=== PATIENT | female | born 1960 | race Caucasian/White ===

== ENCOUNTER 2020-07-27 13:14 | Outpatient (CLI) | payer OTHER, SELFPAY ==
--- NOTE | 2020-07-27 13:20 | MM_ITS ---
WS: [id number] BILATERAL SCREENING MAMMOGRAM WITH SAM DISPLACEMENT VIEWS. CAD PERFORMED. HISTORY: SCREENING COMPARISON: 09/03/2018 and 07/30/2017 Bilateral craniocaudal and mediolateral like views are performed. Sam displacement views in CC and MLO projection also performed. Breasts composition: The breasts are extremely dense, which lowers the sensitivity of mammography. V nat dense fibroglandular pattern. Prepectoral implants are intact. No suspicious calcification or mas s. MM/[id number] IMPRESSION: BI-RADS: 2-Benign FOLLOW-UP: 1 Year Follow-up
== END 2020-07-27 13:15 | disposition home or self-care (01) ==
LOC: RADSHAW 13:19
PROVIDERS: Family Provider Internal Medicine; PCP Family Medicine; Visit Provider Family Medicine
DX: Z12.31 Encounter for screening mammogram for malignant neoplasm of breast (principal)
CPT/HCPCS: 77067

== ENCOUNTER 2021-02-23 09:28 | Emergency (ER) | payer SELFPAY ==
[2021-02-23 09:29] VITALS: BP 117/88; PULSE 75; RESP 17; TEMP 37.1; O2SAT 98; BMI 21.7
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
[2021-02-23 10:08] LABS: Basophils # 0.1 10^3/uL (0.0-0.1); Eosinophils # 0.2 10^3/uL (0.0-0.8); Eosinophils % 2.3 %; Hematocrit 41.1 % (37.0-47.0); Hemoglobin 13.9 g/dL (11.5-15.3); Lymphocytes # 1.7 10^3/uL (0.8-4.8); Lymphocytes % 25.3 %; Mean Corpuscular HGB Conc 33.8 g/dL (30.0-36.0); Mean Corpuscular Hemoglobin 31.7 pg (28.0-34.0); Mean Corpuscular Volume 93.8 fl (81-99); Mean Platelet Volume 10.4 fL (7.4-10.4); Monocytes # 0.5 10^3/uL (0.2-0.9); Monocytes % 7.8 %; Neutrophils # 4.37 10^3/uL (1.8-7.7); Neutrophils % 63.5 %; Nucleated Red Blood Cells % 0 %; Platelet Count 180 10^3/cmm (130-400); Red Blood Count 4.38 10^6/uL (4.1-5.3); Red Cell Distribution Width 11.9 % (12.1-15.1); White Blood Count 6.9 10^3/uL (4.0-10.0)
[2021-02-23 10:15] LABS: Blood Urea Nitrogen 19 mg/dL (6-20); Calcium 9.2 mg/dL (8.5-10.5); Carbon Dioxide 29 mmol/L (22-29); Chloride 103 mmol/L (98-107); Glomerular Filtration Rate 73.4 mL/min (90-130); Glucose 84 mg/dL (65-115); Osmolality Calculated 295 mOsm/kg (285-295); Sodium 142 mmol/L (136-145)
[2021-02-23 10:19] LABS: Add Urine Microscopic? NO; Charge for UA Resulting for Rev
[2021-02-23 10:22] LABS: Bilirubin Urine Neg (Negative); Blood Urine Neg (Negative); Glucose Urine UA Norm (Normal); Ketones Urine Negative (Negative); Leukocyte Esterase Urine Negative (Negative); Nitrate Urine Negative (Negative); Protein Urine Neg (Negative); Urine Appearance Clear (CLEAR); Urine Color Yellow (Yellow); Urobilinogen Urine Norm (Negative); pH Urine 7 (5-7)
[2021-02-23 10:47] VITALS: BP 117/88; PULSE 75; RESP 17; O2SAT 98
== END 2021-02-23 10:48 | disposition home or self-care (01) ==
PROVIDERS: Emergency Provider Family Medicine; PCP Family Medicine
DX: M54.2 Cervicalgia (principal); V89.2XXA Person injured in unspecified motor-vehicle accident, traffic, initial encounter
CPT/HCPCS: 72040; 80048; 81003; 85025; 99282

== ENCOUNTER 2021-12-06 00:07 | Observation (INO) | payer OTHER, SELFPAY ==
[2021-12-06] VITALS (26 sets, daily range): BP systolic 92–143; BP diastolic 52–86; PULSE 70–107; RESP 12–20; TEMP 36.4–39.4; O2SAT 93–99; BMI 21.7
--- NOTE | 2021-12-06 00:19 | CTR_ITS ---
PROCEDURE INFORMATION: Exam: CT Abdomen And Pelvis With Contrast Exam date and time: 12/06/2021 12:34 AM Age: 61 years old Clinical indication: Abdominal pain; Localized; Right lower quadrant (rlq); Patient HX: C/O rlq pain with nausea. Congenital defect of only one kidney. ; Additional info: Abd pain TECHNIQUE: Imaging protocol: Computed tomography of the abdomen and pelvis with contrast. Radiation optimization: All CT scans at this facility use at least one of these dose optimization techniques: automated exposure control; mA and/or kV adjustment per patient size (includes targeted exams where dose is matched to clinical indication); or iterative reconstruction. Contrast material: OMNI 350; Contrast volume: 75 ml; Contrast route: INTRAVENOUS (IV); COMPARISON: CT abdomen pelvis w con* [id number] 11/18/2015 11:16 AM RADIATION DOSE METRICS: Total DLP (mGy-cm): 357.58 FINDINGS: Lungs: Lung bases are clear. Liver: The liver is normal. Gallbladder and bile ducts: The gallbladder is normal. There is no biliary dilation. Pancreas: There is mild atrophy of the pancreas. Spleen: The spleen is unremarkable. Adrenal glands: The adrenal glands are unremarkable. 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 There is mild right hydronephrosis. The right ureter is nondilated. No stones. Stomach and bowel: The stomach is decompressed, preventing meaningful evaluation of wall thickness. The small bowel is nondilated. The colon is unremarkable. Appendix: The appendix is dilated to 13 mm. The wall is thickened and ill-defined. There is periappendiceal edema. No extraluminal gas or fluid collection. Intraperitoneal space: There is no free air or significant intraperitoneal free fluid. Vasculature: There is mild aortic atherosclerotic disease. There is no aneurysm. The portal, splenic and superior mesenteric veins are patent. Lymph nodes: There is no lymphadenopathy in the retroperitoneum, mesentery, pelvis or inguinal regions. Urinary bladder: The urinary bladder is decompressed, preventing meaningful evaluation of wall thickness. Reproductive: There is a 2.3 cm calcified fibroid at the uterine fundus. There is no adnexal mass or large cyst. Bones/joints: Bones are unremarkable. Soft tissues: The abdominal wall is intact. CT/CT abdomen pelvis w con* [id number] IMPRESSION: Acute appendicitis. No sign of perforation.
--- NOTE | 2021-12-06 00:21 | W.ED.ABDPA2 ---
HPI - Abdominal Pain General: Chief Complaint: Abdominal Pain Stated Complaint: ABD Pain Time Seen by Provider: 12/06/21 00:16 Source: patient Mode of arrival: ambulatory Limitations: no limitations History of Present Illness: 61-year-old female states that she been having nausea vomiting along with abdominal pain over the last 2 days. States that today her pain got much worse in the right lower quadrant rates her pain 8 out of 10 denies any worsening improving factors denies any fever denies any dysuria. Associated Symptoms: Reports nausea and vomiting; Denies chills, dysuria and fever(s) Review of Systems Const: Denies: fever(s), chills, body aches or change in appetite Eyes: Denies: blurry vision or eye discomfort ENMT: Denies: throat pain or dental pain Card: Denies: chest pain Resp: Denies: dyspnea GI: Reports: abdominal pain, nausea and vomiting : Denies: dysuria Musc: Denies: neck pain or back pain Skin/Breast: Denies: rash Neuro: Denies: headache(s) Psych: Denies: depression Brian/Lymph: Denies: easy bruising All/Imm: Denies: urticaria PFS ED PFSH: Medical History (Updated 12/06/21 @ 01:38 by Lauren Sawyer MD) No pertinent past medical history Social History (Updated 12/06/21 @ 00:21 by Lauren Sawyer MD) Substance/Drug Use: never Physical Exam Const: COMMON NORMALS: no acute distress, patient oriented x3 and healthy appearing HENMT: COMMON NORMALS: normocephalic and atraumatic HEAD & SCALP: normocephalic and atraumatic Eye: COMMON NORMALS: Equal, round and reactive pupils present and EOMs intact bilaterally PUPIL: Yes Equal, round and reactive pupils present Neck/C-Spine: COMMON NORMALS: full ROM and supple Chest: COMMONS NORMALS: normal inspection of the chest and normal palpation of entire chest wall Resp: COMMON NORMALS: normal respiratory effort, No retractions, No use of accessory muscles and clear to auscultation bilaterally AUSCULTATION: clear to auscultation bilaterally Cardio: COMMON NORMALS: regular rate, regular rhythm and No murmurs present (Cardio) RATE: regular rate RHYTHM: regular rhythm GI: COMMON NORMALS: Normal to inspection, nondistended, normoactive bowel sounds present, Soft to palpation and no masses PALPATION: Yes Soft to palpation and Yes Tenderness to palpation present (GI) Details: RLQ Extremity: COMMON NORMALS: normal to inspection and full ROM Neuro: COMMON NORMALS: patient oriented x3, moves all extremities and no focal motor deficits Psych: COMMON NORMALS: mental status grossly normal, Normal thought process present and cooperative THOUGHT PROCESS: Normal thought process present Skin: COMMON NORMALS: no rashes or lesions noted and no wounds GENERAL SKIN EXAM: no rashes or lesions noted Course Vital Signs: Vital signs: Vital Signs Temperature 97.5 F L 12/06/21 00:11 Pulse Rate 90 12/06/21 01:12 Respiratory Rate 16 12/06/21 01:13 Blood Pressure 138/63 12/06/21 01:12 Pulse Oximetry 98 12/06/21 01:12 Oxygen Delivery Me thod 12/06/21 01:12 MDM - Abdominal Pain Medical Decision Making Patient presents here with abdominal pain found to have appendicitis patient started on IV antibiotics I spoke to surgeon on-call and will admit at this time. Lab Data : 12/06/21 00:14 12/06/21 00:14 Labs/Radiology: Radiology Impressions Abdomen/Pelvis CT 12/06/21 00:19 IMPRESSION: Acute appendicitis. No sign of perforation. ADDENDUM: 12/06/21 0137 THIS REPORT CONTAINS FINDINGS THAT MAY BE CRITICAL TO PATIENT CARE. The findings were verbally communicated via telephone conference with LAUREN SAWYER at 1:37 AM CDT on 12/06/2021. The findings were acknowledged and understood. Laboratory Results WBC 20.7 10^3/uL (4.0-10.0) H 12/06/21 00:14 RBC 4.55 10^6/uL (4.1-5.3) 12/06/21 00:14 Hgb 14.6 g/dL (11.5-15.3) 12/06/21 00:14 Hct 44.6 % (37.0-47.0) 12/06/21 00:14 MCV 98.0 fl (81-99) 12/06/21 00:14 MCH 32.1 pg (28.0-34.0) 12/06/21 00:14 MCHC 32.7 g/dL (30.0-36.0) 12/06/21 00:14 RDW 12.3 % (12.1-15.1) 12/06/21 00:14 Plt Count 211 10^3/cmm (130-400) 12/06/21 00:14 MPV 10.2 fL (7.4-10.4) 12/06/21 00:14 Neut % (Auto) 82.4 % 12/06/21 00:14 Lymph % (Auto) 10.1 % 12/06/21 00:14 [place] % (Auto) 6.4 % 12/06/21 00:14 Eos % (Auto) 0.1 % 12/06/21 00:14 Baso % (Auto) 0.4 % 12/06/21 00:14 Neut # (Auto) 17.04 10^3/uL (1.8-7.7) H 12/06/21 00:14 Lymph # (Auto) 2.1 10^3/uL (0.8-4.8) 12/06/21 00:14 [place] # (Auto) 1.3 10^3/uL (0.2-0.9) H 12/06/21 00:14 Eos # (Auto) 0.0 10^3/uL (0.0-0.8) 12/06/21 00:14 Baso # (Auto) 0.1 10^3/uL (0.0-0.1) 12/06/21 00:14 Nucleated RBC % (auto) 0 % 12/06/21 00:14 Nucleated RBCs # 0.0 /100WBC 12/06/21 00:14 Sodium 135 mmol/L (136-145) L 12/06/21 00:14 Potassium 3.8 mmol/L (3.5-5.1) 12/06/21 00:14 Chloride 98 mmol/L (98-107) 12/06/21 00:14 Carbon Dioxide 26 mmol/L (22-29) 12/06/21 00:14 Anion Gap 14.8 (5-19) 12/06/21 00:14 BUN 12 mg/dL (6-20) 12/06/21 00:14 Creatinine 0.9 mg/dL (0.5-0.9) 12/06/21 00:14 GFR Calculation 64.1 mL/min (90-130) L 12/06/21 00:14 Glucose 162 mg/dL (65-115) H 12/06/21 00:14 Calculated Osmolality 283 mOsm/kg (285-295) L 12/06/21 00:14 Lactate 1.9 mmol/L (0.5-2.2) 12/06/21 00:14 Calcium 9.5 mg/dL (8.5-10.5) 12/06/21 00:14 Total Bilirubin 0.9 mg/dL (0.15-1.2) 12/06/21 00:14 AST 17 U/L (0-32) 12/06/21 00:14 ALT 16 U/L (0-33) 12/06/21 00:14 Alkaline Phosphatase 71 U/L (35-105) 12/06/21 00:14 Total Protein 7.2 g/dL (6.6-8.7) 12/06/21 00:14 Albumin 4.1 g/dL (3.5-5.2) 12/06/21 00:14 Globulin 3.1 g/dL (1.3-4.6) 12/06/21 00:14 Lipase 19 U/L (13-60) 12/06/21 00:14 Discharge Plan Discharge Patient Disposition: Admitted As Inpatient Clinical Impression: Acute appendicitis Coding Level of Care Code ED Accounts Officer for [facility] Fwd Exam Comprehensive
[2021-12-06] MEDS: HYDROmorphone 1 mg/mL INJ 1 mL 0.5 MG IVP (00:28)
[2021-12-06] MEDS: ondansetron 2 mg/ML SDV 2 mL 4 MG IVP ×2 (00:28→02:29)
[2021-12-06] MEDS: sodium chloride 0.9% 1,000 ML 999 ML IV (00:30)
[2021-12-06 00:41] LABS: Basophils # 0.1 10^3/uL (0.0-0.1); Basophils % 0.4 %; Eosinophils % 0.1 %; Hematocrit 44.6 % (37.0-47.0); Hemoglobin 14.6 g/dL (11.5-15.3); Lymphocytes # 2.1 10^3/uL (0.8-4.8); Lymphocytes % 10.1 %; Mean Corpuscular HGB Conc 32.7 g/dL (30.0-36.0); Mean Corpuscular Hemoglobin 32.1 pg (28.0-34.0); Mean Platelet Volume 10.2 fL (7.4-10.4); Monocytes # 1.3 10^3/uL (0.2-0.9); Monocytes % 6.4 %; Neutrophils # 17.04 10^3/uL (1.8-7.7); Neutrophils % 82.4 %; Nucleated Red Blood Cells % 0 %; Platelet Count 211 10^3/cmm (130-400); Red Blood Count 4.55 10^6/uL (4.1-5.3); Red Cell Distribution Width 12.3 % (12.1-15.1); White Blood Count 20.7 10^3/uL (4.0-10.0)
[2021-12-06] MEDS: iohexol 350 mg/mL 100 mL Btl IV (00:45)
[2021-12-06 00:51] LABS: Alanine Aminotransferase 16 U/L (0-33); Albumin Level 4.1 g/dL (3.5-5.2); Alkaline Phosphatase 71 U/L (35-105); Aspartate Amino Transferase 17 U/L (0-32); Blood Urea Nitrogen 12 mg/dL (6-20); Calcium 9.5 mg/dL (8.5-10.5); Carbon Dioxide 26 mmol/L (22-29); Chloride 98 mmol/L (98-107); Globulin 3.1 g/dL (1.3-4.6); Glomerular Filtration Rate 64.1 mL/min (90-130); Glucose 162 mg/dL (65-115); Lipase 19 U/L (13-60); Osmolality Calculated 283 mOsm/kg (285-295); Sodium 135 mmol/L (136-145); Total Bilirubin 0.9 mg/dL (0.15-1.2); Total Protein 7.2 g/dL (6.6-8.7)
[2021-12-06 00:54] LABS: Anion Gap 14.8 (5-19); Potassium 3.8 mmol/L (3.5-5.1)
[2021-12-06] MEDS: HYDROmorphone 1 mg/mL INJ 1 mL IVP ×2 (01:13→04:40)
[2021-12-06] MEDS: piperacillin-tazobactam 3.375 GM in sodium chloride 0.9% (plus) 50 ML IV ×3 (01:43→20:38)
[2021-12-06 01:47] LABS: Lactate (Lactic Acid level) 1.9 mmol/L (0.5-2.2)
[2021-12-06] MEDS: morphine 4 mg/mL SDV 1 mL IVP (02:28)
[2021-12-06] MEDS: sodium chloride 0.9% 1,000 ML 100 ML IV ×2 (02:29→11:51)
[2021-12-06 02:40] LABS: Add Urine Microscopic? YES; Bilirubin Urine Neg (Negative); Blood Urine 2+ (Negative); Glucose Urine UA Norm (Normal); Ketones Urine 1+ (Negative); Leukocyte Esterase Urine 1+ (Negative); Nitrate Urine Negative (Negative); Protein Urine 1+ (Negative); Specific Gravity, Urine 1.005 (1.005-1.030); Urine Appearance Clear (CLEAR); Urine Color Light Yellow (Yellow); Urobilinogen Urine Norm (Negative); pH Urine 6.5 (5-7)
[2021-12-06] MEDS: lanolin oint 7 gm 1 APPLIC TOPICAL (02:48)
[2021-12-06 03:13] LABS: Add Urine Culture? No; Bacteria Urine TRACE /hpf; RBC Urine 0-4 /hpf (0-2); Squamous Epithelial Cell Urine 0-4 /hpf (0-5)
--- NOTE | 2021-12-06 04:43 | PC.NURSE ---
Dr. Hurst notified of pain and fever. IV Tylenol x1 and IV Dialudid x1 ordered.
[2021-12-06] MEDS: acetaminophen 1,000 MG/100 ML PIGGYBACK 400 MG IV (04:51)
--- NOTE | 2021-12-06 05:26 | PM.HP ---
Providers/Chief Complaint Admitting Physician: Jose Juan Pierson MD Primary Care Provider: Marni Hunt MD Chief Complaint: ABD Pain History of Present Illness Mayuri Crain is a 61 year old female She developed abdominal pain since Saturday, initially all over the abdomen and then it localized in the right lower quadrant. She had 1 similar episode of pain similar to this 1 to 3 months ago. The pain was getting progressively worse, she developed poor appetite, nausea, high fever, chills. She went to seek medical attention to the emergency room and was diagnosed with acute appendicitis. History of breast cosmetic surgery, history of vaginal fistula after delivery long time ago. No history of abdominal surgeries. She is very active and denies any medical problems. Denies any chest pain, shortness of breath with physical exertion. Review of Systems Narrative: 10 point review of systems is negative except as per HPI Medications/Allergies Home Medications Medication Instructions Recorded Confirmed Last Taken Type dextroamphetamine-amphetamine ER 10 mg PO DAILY 12/06/21 12/06/21 Unknown History 10 mg 24hr capsule,extend release levothyroxine 50 mcg capsule 0 mcg PO DAILY 12/06/21 12/06/21 Unknown History Allergies Allergy/AdvReac Type Severity Reaction Status Date / Time Sulfa (Sulfonamide Allergy ALGY-Rash Verified 12/06/21 00:15 Antibiotics) PFSH Acute PFSH: Medical History (Updated 12/06/21 @ 01:38 by Sonal Hurst MD) No pertinent past medical history Social History (Updated 12/06/21 @ 00:21 by Sonal Hurst MD) Substance/Drug Use: never Vitals/I&O/Wt Last Vital Signs Temp 102.9 F H 12/06/21 04:43 Pulse 107 H 12/06/21 04:00 Resp 16 12/06/21 04:40 BP 126/71 12/06/21 04:00 Pulse Ox 94 12/06/21 04:00 O2 Del Method 12/06/21 04:00 O2 Flow Rate 2 12/06/21 01:51 12/05/21 12/05/21 12/06/21 14:59 22:59 06:59 Intake Total 1150 / 1150 Output Total 150 / 150 Balance 1000 / 1000 Weight last 48 hrs Weight 135 lb Physical Exam Narrative: General: No acute distress Psych: AAOx3 Eyes: Sclerae are white Head/ENT: Normocephalic, symmetric CV: Regular pulse, tachychardic, no JVD Lungs: Symmetrical chest rise Abdomen: Soft, ND, tender to palpation in right lower quadrant Ext: No obvious traumatic deformities Skin: warm Data : 12/06/21 00:14 12/06/21 00:14 A&P Assessment and plan (1) Acute appendicitis: Initial history of acute appendicitis was discussed with the patient, surgical versus nonsurgical approaches were discussed. The patient agreed to proceed with a laparoscopic appendectomy. Risks and benefits of surgery was discussed including complications including infection, bleeding, damage to surrounding structures, complications related to general anesthesia, blood clots, incisional hernia. The patient agreed to proceed with a laparoscopic appendectomy. All questions were answered. 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
[2021-12-06] MEDS: sodium chloride 0.9% 1,000 ML 30 ML IV (07:35)
--- NOTE | 2021-12-06 07:50 | P.ANESASSM_ITS ---
Pre-Anesthetic Assessment Height/Weight: Height 1.68 m Weight 61.235 kg Temp Pulse Resp BP Pulse Ox O2 Del Method O2 Flow Rate 98.7 F 84 18 99/59 94 2 12/06/21 07:36 12/06/21 07:36 12/06/21 07:36 12/06/21 07:36 12/06/21 07:36 12/06/21 07:36 12/06/21 01:51 Operation Date: 12/06/21 12:00 Proposed Procedures p Laparoscopic Appendectomy(Right) - Jose Juan Pierson MD Familial anesthetic complications: None Was Beta Perri taken within 24 hours: N/A Was Clonidine taken within 24 hours: N/A Last intake: Intake Last Liquid Date 12/05/21 Last Liquid Time 23:58 Last Solid Date 12/04/21 Last Solid Time 16:00 Social No alcohol and No tobacco Exam alert, oriented x 3, clear to auscultation bilaterally and regular rate & rhythm Airway Mallampati: Class II Dentition: full Metabolic Thyroid Disease Anesthetic Plan ASA status: 2 Anesthesia: General Risk of > 500 ml blood loss (7ml/kg in children): No Medications/Allergies Home Medications Medication Instructions Recorded Confirmed Last Taken Type dextroamphetamine-amphetamine ER 10 mg PO DAILY 12/06/21 12/06/21 Unknown History 10 mg 24hr capsule,extend release levothyroxine 50 mcg capsule 0 mcg PO DAILY 12/06/21 12/06/21 Unknown History Allergies Allergy/AdvReac Type Severity Reaction Status Date / Time Sulfa (Sulfonamide Allergy ALGY-Rash Verified 12/06/21 00:15 Antibiotics) Current Medications Generic Name Dose Route Start Last Admin Trade Name Freq PRN Reason Stop Dose Admin Sodium Chloride 1,000 mls @ 100 mls/hr 12/06/21 01:57 12/06/21 02:29 Sodium Chloride 0.9% IV 100 mls/hr .Q10H ROYCE Administration Sodium Chloride 1,000 mls @ 30 mls/hr 12/06/21 07:30 12/06/21 07:35 Sodium Chloride 0.9% IV 12/07/21 07:29 30 mls/hr .Q24H ROYCE Administration Lanolin 1 applic 12/06/21 02:38 12/06/21 02:48 Lanolin Oint 7 Gm TOPICAL 1 applic PRN PRN Administration DRYNESS Morphine Sulfate 4 mg 10/19/22 01:57 12/06/21 02:28 Morphine 4 Mg/Ml Sdv 1 Ml IVP 4 mg Q4H PRN Administration SEVERE PAIN Ondansetron HCl 4 mg 12/06/21 02:17 12/06/21 02:29 Ondansetron 2 Mg/Ml Sdv 2 Ml IVP 4 mg Q6H PRN Administration NAUSEA AND VOMITING PFSH Anesthesia Medical History (Updated 12/06/21 @ 01:38 by Sonal Hurst MD) No pertinent past medical history Social History (Updated 12/06/21 @ 00:21 by Sonal Hurst MD) Substance/Drug Use: never Data Anesthesia : 12/06/21 00:14 12/06/21 00:14 Short CBC 12/06/21 Range/Units 00:14 WBC 20.7 H (4.0-10.0) 10^3/uL Hgb 14.6 (11.5-15.3) g/dL Hct 44.6 (37.0-47.0) % MCV 98.0 (81-99) fl Plt Count 211 (130-400) 10^3/cmm Neut % (Auto) 82.4 % Neut # (Auto) 17.04 H (1.8-7.7) 10^3/uL BMP 12/06/21 00:14 Sodium 135 L Potassium 3.8 Chloride 98 Carbon Dioxide 26 BUN 12 Creatinine 0.9 Glucose 162 H Calcium 9.5 Liver Function 12/06/21 Range/Units 00:14 Total Bilirubin 0.9 (0.15-1.2) mg/dL AST 17 (0-32) U/L ALT 16 (0-33) U/L Alkaline Phosphatase 71 (35-105) U/L Albumin 4.1 (3.5-5.2) g/dL Urine 12/06/21 Range/Units 02:05 Urine Color Light yellow (Yellow) Urine Appearance Clear (CLEAR) Urine pH 6.5 (5-7) Ur Specific [place] 1.005 (1.005-1.030) Urine Protein 1+ H (Negative) Urine Glucose (UA) Norm (Normal) Urine Ketones 1+ H (Negative) Urine Nitrate Negative (Negative) Urine Bilirubin Neg (Negative) Ur Leukocyte Esterase 1+ H (Negative) Urine RBC 0-4 H (0-2) /hpf Urine WBC 5-10 H (0-5) /hpf Cardiac Studies: No Data to Display
--- NOTE | 2021-12-06 08:59 | SUR.OPER ---
attempted to notify of surgical start. no answer
--- NOTE | 2021-12-06 10:00 | P.OP_ITS ---
Operative Report Date of procedure: December 06, 2021 Pre-op diagnosis: Preoperative diagnosis: Acute appendicitis Postoperative diagnosis: Acute appendicitis, gangrenous, nonperforated Procedure: Laparoscopic appendectomy (CPT 27985) Surgeon: Jose Juan Pierson MD, VI Start/End time: please, see nursing documentation. Physician Practice Coordinator: none Anesthesia: General Endotracheal Anesthesiologist/DIAMOND DRILLER HELPER: please, see anesthesia documentation. EBL, ml: 2 ml Specimen: appendix, submitted to pathology Complications: none Findings: Appendix was inflamed, it has gangrenous changes closer to its base. However, I did not see any obvious perforation. There was a lot of fibrinous exudate and cloudy purulent fluid in the pelvis. It was aspirated and washed out until clear. []_ Indications: Clinical picture of acute appendicitis confirmed by a CT scan. []_ We discussed the natural course of the disease and indications for laparoscopic appendectomy, including risks and benefits of a surgical procedure, including infection, bleeding, damage to surrounding tissue, intraabdominal abscess, hernia at the incision site, bowel obstruction, bowel leak, deep venous thrombosis and pulmonary embolism, and . The patient agreed to proceed with laparoscopic appendectomy and signed an informed consent. Details of the procedure: The patient was identified in the holding area and brought to the operating room and positioned supine on the operating table. Sequential compression devices were applied to bilateral lower extremities to prevent deep venous thromboembolism. Subsequently, general endotracheal anesthesia was initiated without any complications. The surgical area was prepped and draped in a regular sterile fashion. TIME OUT: Immediately prior to procedure, time out was performed to include correct patient, agreement on the procedure to be performed, correct side, site, position, accurate procedure consent, relevant images, antibiotics, fluids, safety precautions, and availability of any special implants that might be required. The skin was anesthetized with Marcaine and periumbilical incision was made and carried down to the fascia. The umbilical stalk was grasped with a Cara clamp and lifted up. The fascia was incised vertically through the linea alba. Two 0- Vicryl stay sutures were placed. The peritoneum was penetrated bluntly with a hemostat. The absence of adhesions was confirmed with a finger swipe. A balloon trocar was placed and the abdomen was insufflated to 15 mm Hg. A 10 mm 30 degree angle camera was introduced into the abdomen. Additional 5 mm trocars were placed under direct vision: one in the midline 2 cm above the pubis, second in the left lower quadrant lateral to the rectus muscle. All the trocar sites were infiltrated with local anesthetic from skin to peritoneum before the insertion. The appendix was inflamed. It was grasped with a laparoscopic Janet clamp and retracted upward to expose the mesoappendix. The mesentery of the appendix was divided with Ligasure. There was no bleeding. Then the Vicryl endoloop was tied around the base of the appendix. The appendix was divided 7mm distal to the endoloop. The appendix was placed in the Endocatch bag. The operative field was irrigated with saline, inspected and good hemostasis was confirmed. All the irrigation fluid was aspirated. Both 5mm trocars were removed under direct vision. There was no bleeding. Specimen was removed in the bag through umbilical incision. The fascia at the umbilical incision was closed with [four] interrupted 0-Vicryl sutures. Then the wound was irrigated with saline and injected with Marcaine. Skin incisions were closed primarily with 4-0 Monocryl. Steristrips were applied. The needle, instrument and sponge counts were correct x 2. The patient tolerated the procedure well, was extubated in the OR and was transferred to the recovery in stable condition.
[2021-12-06] MEDS: ketorolac 30 mg/mL INJ 15 MG IVP ×2 (11:53→18:07)
--- NOTE | 2021-12-06 13:54 | ANE.PACU2 ---
Inpatient post-anesthesia follow up: Airway intact: Yes Vital signs: Temperature 98.1 F Pulse Rate 81 Respiratory Rate 18 Blood Pressure 107/64 Pulse Oximetry 94 Oxygen Delivery Me thod [ Room Air Current Rate & Del rylee] Oxygen Delivery Me thod Room Air Oxygen Flow Rate 6 Fraction of Inspir ed Oxygen Hydration adequate: Yes Nausea and vomiting: No Pain level: 1 Mental status: Baseline
[2021-12-06] MEDS: docusate sodium 100 mg Capsule PO (18:07)
[2021-12-06] MEDS: sennosides 8.6 mg Tablet 17.2 MG PO (20:36)
[2021-12-07] VITALS: BP 96/61; PULSE 74; RESP 16; TEMP 36.6; O2SAT 95
[2021-12-07] MEDS: ketorolac 30 mg/mL INJ 15 MG IVP ×3 (00:25→12:42)
[2021-12-07 03:36] VITALS: BP 109/68; PULSE 71; RESP 16; TEMP 36.9; O2SAT 95
[2021-12-07] MEDS: piperacillin-tazobactam 3.375 GM in sodium chloride 0.9% (plus) 50 ML IV (04:30)
[2021-12-07] MEDS: sodium chloride 0.9% 1,000 ML 100 ML IV (04:36)
[2021-12-07 06:06] LABS: Basophils % 0.2 %; Eosinophils % 0.1 %; Hematocrit 36.1 % (37.0-47.0); Hemoglobin 11.7 g/dL (11.5-15.3); Lymphocytes # 1.5 10^3/uL (0.8-4.8); Lymphocytes % 9.2 %; Mean Corpuscular HGB Conc 32.4 g/dL (30.0-36.0); Mean Corpuscular Hemoglobin 32.6 pg (28.0-34.0); Mean Corpuscular Volume 100.6 fl (81-99); Monocytes # 0.8 10^3/uL (0.2-0.9); Monocytes % 4.9 %; Neutrophils # 13.58 10^3/uL (1.8-7.7); Neutrophils % 84.9 %; Nucleated Red Blood Cells % 0 %; Platelet Count 163 10^3/cmm (130-400); Red Blood Count 3.59 10^6/uL (4.1-5.3); Red Cell Distribution Width 12.4 % (12.1-15.1)
[2021-12-07] MEDS: enoxaparin 30 mg/0.3 mL Syringe SUBCUT (06:07)
[2021-12-07 08:00] VITALS: BP 107/65; PULSE 64; RESP 16; TEMP 36.8; O2SAT 98
[2021-12-07] MEDS: docusate sodium 100 mg Capsule PO (08:59)
[2021-12-07 12:00] VITALS: BP 113/67; PULSE 57; RESP 16; TEMP 37.1; O2SAT 97
[2021-12-07] MEDS: cetylpyridinium Lozenge 1 EACH MUCOUS MEM (12:44)
--- NOTE | 2021-12-07 13:15 | PC.CHAP ---
Pastoral Care Encounter/Spiritual Assessment Type of Contact [] Declined bag shop worker visit [] Patient/Family/Request visit [] Outpatient visit [] Follow-up visit [] Physician referral [] Code/Alert [x] Routine visit [] Staff referral [] Actively dying [] Patient sleeping [] Family support [] [] Out of room [] Palliative care [] [x] Receiving care in room [] Pre-surgical visit [] Trauma [] Long length of stay [] ICU visit [] Other: Relational/Emotional Strength [x] Patient feels connected with others/family/visitors/staff [] Distress [] Loneliness/isolation [] Abandonment Spirituality of Patient [x] Person of Alycia [] Attends Alevism of their Alycia [x] Believes in Prayer [] Reads Bible or Sikhism materials [] There are Spiritual issues to be addressed Autopsy Assistant Interventions [x] Prayer [x] Active listening [x] Non-anxious presence [x] Spiritual/emotional support [] Crisis/trauma care [x] Spiritual counseling [] Bereavement support [] Provided bereavement packet [] Provided Bible/devotional materials [] Provided toy/stuffed animal, coloring book to patient or family member [] Provided Communion [] Anointing/[place] [] Salvation [x] Completed spiritual assessment [] Other: Impact on Illness or Injury [] Angry [] Fearful [x] Anxious [] Often cries [] Exhaustion [x] Unable to work [] Unable to attend buddhism [] Unable to walk/stand [] Unable to read [] Unable to drive [] Unable to eat/drink [] Unable to sleep [] Unable to be with family [] Patient intubated [] Other: Summary senior zarate pain feeling better has a good attitude well be going home Time spent with patient 10 mins
--- NOTE | 2021-12-07 15:26 | P.DS_ITS ---
Discharge Providers Date of Admission: 12/06/21 01:51 Date of Discharge: December 07, 2021 Attending Provider at Admission: Jose Juan Pierson MD Attending Provider at Discharge: Jose Juan Pierson MD Primary Care Provider: Marni Hunt MD Diagnoses at Discharge Discharge Diagnosis (1) Acute appendicitis: Status: Acute Reason for Visit Reason for Visit: ABD Pain Brief History: Abdominal pain Hospital Course Hospital Course The patient was admitted with acute appendicitis. She underwent laparoscopic appendectomy. Postoperative period was uncomplicated. Discharged home in a stable condition. Physical Exam Narrative: General: No acute distress Psych: AAOx3 Eyes: Sclerae are white Head/ENT: Normocephalic, symmetric CV: Regular pulse, tachychardic, no JVD Lungs: Symmetrical chest rise Abdomen: Soft, ND, minimal tenderness to palpation around incisions, wounds are clean dry intact. Ext: No obvious traumatic deformities Skin: warm Discharge Data Studies Completed and Pending Completed Studies During Hospitalization Category Date Time Status CT abdomen pelvis w con* [id number] Stat Cat Scan 12/06/21 00:19 Completed Pending at discharge Category Date Time Status Pathology: Surgical [PTH] Routine Pth 12/06/21 09:30 Received Radiology Impressions Abdomen/Pelvis CT 12/06/21 00:19 IMPRESSION: Acute appendicitis. No sign of perforation. ADDENDUM: 12/06/21 0137 THIS REPORT CONTAINS FINDINGS THAT MAY BE CRITICAL TO PATIENT CARE. The findings were verbally communicated via telephone conference with LAUREN SAWYER at 1:37 AM CDT on 12/06/2021. The findings were acknowledged and understood. Laboratory Results WBC 16.0 10^3/uL (4.0-10.0) H 12/07/21 05:09 RBC 3.59 10^6/uL (4.1-5.3) L 12/07/21 05:09 Hgb 11.7 g/dL (11.5-15.3) 12/07/21 05:09 Hct 36.1 % (37.0-47.0) L 12/07/21 05:09 MCV 100.6 fl (81-99) H 12/07/21 05:09 MCH 32.6 pg (28.0-34.0) 12/07/21 05:09 MCHC 32.4 g/dL (30.0-36.0) 12/07/21 05:09 RDW 12.4 % (12.1-15.1) 12/07/21 05:09 Plt Count 163 10^3/cmm (130-400) 12/07/21 05:09 MPV 11.0 fL (7.4-10.4) H 12/07/21 05:09 Neut % (Auto) 84.9 % 12/07/21 05:09 Lymph % (Auto) 9.2 % 12/07/21 05:09 [facility] [place] [facility] % (Auto) 4.9 % 12/07/21 05:09 Eos % (Auto) 0.1 % 12/07/21 05:09 Baso % (Auto) 0.2 % 12/07/21 05:09 Neut # (Auto) 13.58 10^3/uL (1.8-7.7) H 12/07/21 05:09 Lymph # (Auto) 1.5 10^3/uL (0.8-4.8) 12/07/21 05:09 [facility] [place] [facility] # (Auto) 0.8 10^3/uL (0.2-0.9) 12/07/21 05:09 Eos # (Auto) 0.0 10^3/uL (0.0-0.8) 12/07/21 05:09 Baso # (Auto) 0.0 10^3/uL (0.0-0.1) 12/07/21 05:09 Nucleated RBC % (auto) 0 % 12/07/21 05:09 Nucleated RBCs # 0.0 /100WBC 12/07/21 05:09 Sodium 135 mmol/L (136-145) L 12/06/21 00:14 Potassium 3.8 mmol/L (3.5-5.1) 12/06/21 00:14 Chloride 98 mmol/L (98-107) 12/06/21 00:14 Carbon Dioxide 26 mmol/L (22-29) 12/06/21 00:14 Anion Gap 14.8 (5-19) 12/06/21 00:14 BUN 12 mg/dL (6-20) 12/06/21 00:14 Creatinine 0.9 mg/dL (0.5-0.9) 12/06/21 00:14 GFR Calculation 64.1 mL/min (90-130) L 12/06/21 00:14 Glucose 162 mg/dL (65-115) H 12/06/21 00:14 Calculated Osmolality 283 mOsm/kg (285-295) L 12/06/21 00:14 Lactate 1.9 mmol/L (0.5-2.2) 12/06/21 00:14 Calcium 9.5 mg/dL (8.5-10.5) 12/06/21 00:14 Total Bilirubin 0.9 mg/dL (0.15-1.2) 12/06/21 00:14 AST 17 U/L (0-32) 12/06/21 00:14 ALT 16 U/L (0-33) 12/06/21 00:14 Alkaline Phosphatase 71 U/L (35-105) 12/06/21 00:14 Total Protein 7.2 g/dL (6.6-8.7) 12/06/21 00:14 Albumin 4.1 g/dL (3.5-5.2) 12/06/21 00:14 Globulin 3.1 g/dL (1.3-4.6) 12/06/21 00:14 Lipase 19 U/L (13-60) 12/06/21 00:14 Urine Color Light yellow (Yellow) 12/06/21 02:05 Urine Appearance Clear (CLEAR) 12/06/21 02:05 Urine pH 6.5 (5-7) 12/06/21 02:05 Ur Specific [place] 1.005 (1.005-1.030) 12/06/21 02:05 Urine Protein 1+ (Negative) H 12/06/21 02:05 Urine Glucose (UA) Norm (Normal) 12/06/21 02:05 Urine Ketones 1+ (Negative) H 12/06/21 02:05 Urine Blood 2+ (Negative) H 12/06/21 02:05 Urine Nitrate Negative (Negative) 12/06/21 02:05 Urine Bilirubin Neg (Negative) 12/06/21 02:05 Urine Urobilinogen Norm mg/dL (Negative) 12/06/21 02:05 Ur Leukocyte Esterase 1+ (Negative) H 12/06/21 02:05 Urine RBC 0-4 /hpf (0-2) H 12/06/21 02:05 Urine WBC 5-10 /hpf (0-5) H 12/06/21 02:05 Ur Squamous Epith Cells 0-4 /hpf (0-5) H 12/06/21 02:05 Amorphous Sediment Not Reportable 12/06/21 02:05 Urine Bacteria Trace /hpf (NONE) 12/06/21 02:05 Procedures Performed Laparoscopic appendectomy Vitals Last Vital Signs Temp 98.8 F 12/07/21 12:00 Pulse 57 L 12/07/21 12:00 Resp 16 12/07/21 12:00 BP 113/67 12/07/21 12:00 Pulse Ox 97 12/07/21 12:00 O2 Del Method 12/07/21 12:00 O2 Flow Rate 6 12/06/21 09:47 Discharge Plan Discharge Patient Disposition: Home Condition: Stable Prescriptions: New tramadol 50 mg tablet 50 mg PO Q8H PRN (Reason: pain) Qty: 14 0RF Augmentin XR 1,000-62.5 mg tablet extended release 12 hr 1 tab PO BID Qty: 8 0RF docusate calcium 240 mg capsule 240 mg PO BID Qty: 10 0RF Tylenol 325 mg tablet 975 mg PO Q8H 4 Days Qty: 36 0RF Continued dextroamphetamine-amphetamine 10 mg capsule,extended release 24hr 10 mg PO DAILY levothyroxine 50 mcg Capsule 0 mcg PO DAILY Discharge Orders: Discharge Order (Routine); Ordered 12/07/21 Ordered By: Jose Juan Pierson Referrals: Marni Hunt MD [Primary Care Provider] - 12/12/21 9:15 am Sterling Mari DO [Physician] - 12/19/21 9:50 am Discharge Diet: Advance as tolerated Discharge Activity: Resume usual activity Patient Instructions: Amoxicillin/Clavulanate Potassium (By mouth), Tramadol (By mouth), Docusate (Into the rectum), Appendicitis (GEN), Opioid Safety, Post Anesthesia Care Activity Restrictions/Additional Instructions: DIET: - Solid meals. - Start taking stool softner/laxatives if you do not have a bowel movement in 1- 2 days after surgery. WOUND CARE: - Apply ice pack to your wounds for 20 min every 4 hours x 2-3 days and as needed to prevent swelling and reduce pain. - Ok to shower tomorrow. [Do not remove paper strips from your wound.] Let the water and soap run over the wounds, do not scrub. No soaking in a bath tab. Pat it dry after the shower and replace the band aid. ACTIVITY: - No heavy lifting, no more than 15 lbs x 4 weeks. No heavy pushing. - All other activities as tolerated, avoid strenuous exercise of any sort for 2 weeks. PAIN CONTROL: - First line: Tylenol 970mg PO q6h x 5 days; stop taking it if you have no pain at all. - Back up thirud line: Tramadol 50 mg PO q4-6h PRN for pain; start taking Tramadol if Tylenol with Ibuprofen are not effective FOLLOW-UP CARE: Please, call to confirm/arrange for appointment, - with General Surgery, at [facility] in 2-3 weeks; please, call surgery office number to confirm an appointment PRECAUTIONS: If you taking any opioids, including but not limited to [place]/Vicodin/Percocet/Tramadol/Codeine: Do not drive or operate any heavy machinery Do not consume alcohol, tranquilizers Contact surgery office/go to emergency room with any of the following: Fever over 101 F. Pain not relieved by medications ordered. Increase redness, warmth, swelling or hardness around the operative area. Blood-soaked dressing (small amounts of drainage may be normal). Increasing drainage from the surgical area or exam site. Inability to urinate, Persistent nausea, vomiting, inability to tolerate oral intake, worsening abdominal pain/distention, inability to pass gas for more than 24h. Discharge Attestations Time Spent in Discharge Care*: less than 30 min Quality Metrics Clinical Quality Measures [ No reported AMI, CVA or VTE this stay] Coding Level of Care Code Acute g DC note Diagnoses Acute appendicitis K35.80
== END 2021-12-07 15:54 | disposition home or self-care (01) ==
LOC: ER 01:38 → MEDSURG 01:58
PROVIDERS: Admitting Provider Surgery; Emergency Provider Emergency Medicine; PCP Family Medicine; Visit Provider Surgery
PROC: 0DTJ4ZZ Resection of Appendix, Percutaneous Endoscopic Approach (ICD-10-PCS; CPT 44970; principal; 2021-12-06 12:00)
DX: K35.891 Other acute appendicitis without perforation, with gangrene (principal)
CPT/HCPCS: 44970; 12345; 74177; 80053; 81001; 83605; 83690; 85025; 88304; 96365; 96366; 96372; 96374; 96375; 96376; 99285; G0378; J0330; J1100; J1170; J1650; J1885; J2270; J2370; J2405; J2543; J2704; J2710; J3010; J3490; J7030; Q9967

== ENCOUNTER 2022-02-02 10:01 | Outpatient (CLI) | payer OTHER, SELFPAY ==
--- NOTE | 2022-02-02 10:05 | MM_ITS ---
WS: [id number] Bilateral screening 3D tomosynthesis digital mammogram, 02/02/2022 Clinical Data: SCREENING Comparison: 07/27/2020, 09/03/2018, 07/30/2017, 07/09/2016, 07/01/2015, 06/25/2014, 06/04/2013, Findings: The breast parenchymal pattern shows Stream density. No spiculated masses or clustered calcifications are seen. There are no secondary signs of carcinoma. The augmentation mammoplasty implants are intac t. MM/[place] [id number] Impression: 1. Negative bilateral mammogram unchanged. 2. Recommend annual screening mammograms. BIRADS: 2-Benign FOLLOW UP: 1 Year Follow-up The CAD time checker was used.
== END 2022-02-02 10:02 | disposition home or self-care (01) ==
LOC: RAD 10:01
PROVIDERS: PCP Family Medicine; Visit Provider Family Medicine
DX: Z12.31 Encounter for screening mammogram for malignant neoplasm of breast (principal)
CPT/HCPCS: 77063; 77067

== ENCOUNTER 2022-03-12 15:12 | Outpatient (CLI) | payer OTHER, SELFPAY ==
--- NOTE | 2022-03-12 15:22 | XR_ITS ---
WS: [email or web address] Exam: XR cervical spine fl/ex [id number] Date/Time of Exam: 03/12/2022 3:25 PM Reason For Exam: CERVICALGIA Comparison 02/23/2021. No fracture or dislocation. No flexion or extension instability is demonstrated. Mild facet DJD at al l levels. Early degenerative thinning of the C6-7 disc. Normal paraspinal soft tissues. XR/XR cervical spine fl/ex [id number] IMPRESSION: 1. No significant flexion or extension instability identified. Minimal degenera tive changes.
== END 2022-03-12 15:13 | disposition home or self-care (01) ==
LOC: LAB 15:15 → RAD 15:17
PROVIDERS: PCP Family Medicine; Visit Provider Nurse Practitioner
DX: M54.2 Cervicalgia (principal)
CPT/HCPCS: 72040

== ENCOUNTER 2022-04-10 11:30 | Outpatient (CLI) | payer OTHER, SELFPAY ==
--- NOTE | 2022-04-10 | MR_ITS ---
WS: [id number] MRI CERVICAL SPINE NONCONTRAST HISTORY: NECK PAIN COMPARISON: Radiographs 02/23/2021 and 03/12/2022. Technique: Multiplanar, multisequence noncontrast imaging of the cervical spine. C2 anterolisthesis by 2 mm. Remaining alignment is normal. Signal within the cervical cord is normal. Visualized posterior fossa is unremarkable. Craniocervical junction, C1 and C2 relationship, odontoid process and soft tissues are normal. There is increased T2 signal surrounding the LEFT C2-3, C3-4 and C4-5 facet joints. Signal abnormalit ies involving both the articular facets and the soft tissue. C2-C3: Small RIGHT foraminal osteophyte with only mild foraminal narrowing. C3-C4: Mild bilateral facet joint arthritis. Bilateral foraminal osteophytes, RIGHT greater than LEFT with mild foraminal narrowing. C4-C5: Mild annular disc bulging and osteophytic ridging. Bilateral facet joint arthritis. Moderate L EFT foraminal narrowing. C5-C6: Small central disc protrusion and bilateral facet arthritis. C6-C7: Mild disc bulging with small bilateral foraminal osteophytes. Only mild foraminal narrowing, R IGHT greater than LEFT. C7-T1: Normal. MR/MR cervical spin wo con* [id number] IMPRESSION: 1. No high-grade central stenosis. 2. Mild foraminal narrowing at C2-3 and C6-7. 3. Mild foraminal narrowing at C3-4, RIGHT greater than LEFT. 4. Moderate LEFT foraminal narrowing at C4-5. 5. Facet joint synovitis on the LEFT at C2-3, C3-4 and C4-5.
== END 2022-04-10 11:31 | disposition home or self-care (01) ==
LOC: RAD 11:33
PROVIDERS: PCP Family Medicine; Visit Provider Nurse Practitioner
DX: M48.02 Spinal stenosis, cervical region (principal); M65.88 Other synovitis and tenosynovitis, other site
CPT/HCPCS: 72141

== ENCOUNTER 2023-03-07 12:56 | Outpatient (CLI) | payer OTHER, SELFPAY ==
--- NOTE | 2023-03-07 13:25 | MM_ITS ---
WS: [email or web address] BILATERAL SCREENING DIGITAL BREAST MAMMOGRAPHY WITH SAM DISPLACEMENT VIEWS. CAD PERFORMED. HISTORY: SCREEN COMPARISON: 02/02/2022, 07/27/2020 Bilateral craniocaudal and mediolateral oblique views are performed with tomosynthesis and SM. Sam displacement views in CC and MLO projection also performed. Breasts composition: The breasts are extremely dense, which lowers the sensitivity of mammography. I mplants are intact. No suspicious masses or calcifications. IMPRESSION: MM/[place] [id number] BI-RADS: 2-Benign FOLLOW-UP: 1 Year Follow-up
== END 2023-03-07 12:57 | disposition home or self-care (01) ==
PROVIDERS: PCP Family Medicine; Visit Provider Family Medicine
DX: Z12.31 Encounter for screening mammogram for malignant neoplasm of breast (principal)
CPT/HCPCS: 77063; 77067

== ENCOUNTER 2023-09-12 10:45 | Outpatient (CLI) | payer OTHER, SELFPAY ==
--- NOTE | 2023-09-12 10:48 | MR_ITS ---
WS: [email or web address] MRI RIGHT SHOULDER NONCONTRAST TECHNIQUE: Sagittal T2, coronal T1, T2 and proton density imaging. Axial gradient PDE imaging. CLINICAL INFORMATION: R SUPRASPINATUS TENDINITIS COMPARISON: None. FINDINGS: Moderate arthritis AC joint with mild edema. Mild downsloping acromion. Slight impingement distal sup raspinatus. Mild narrowing of the subacromial space. Chronic tear with slight retraction of the dista l supraspinatus insertion. Chronic thinning of the supraspinatus with calcific tendinitis. Infraspina tus is intact. Normal teres minor. Normal subscapularis. Biceps tendon is intact within the bicipital groove. Intra-articular biceps tendon is normal. Normal bone marrow signal in the humerus and glenoid. Normal biceps labral anchor. MR/MR shoulder RT wo con* [id number] IMPRESSION: 1. 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 Slight impingemen t distal supraspinatus with calcific tendinopathy. 2. Small insertional tear distal supraspinatus with retraction measuring 1.3 c m. 3. Rotator cuff is otherwise intact. 4. Normal biceps tendon in the bicipital groove. 5. Intra-articular biceps tendon is intact. 6. Moderate degenerative arthritis glenohumeral articulation. 7. No evidence of Hill-Sachs lesion.
== END 2023-09-12 10:46 | disposition home or self-care (01) ==
PROVIDERS: PCP Family Medicine; Visit Provider Internal Medicine
DX: M75.91 Shoulder lesion, unspecified, right shoulder (principal); M13.811 Other specified arthritis, right shoulder; M75.101 Unspecified rotator cuff tear or rupture of right shoulder, not specified as traumatic; M77.8 Other enthesopathies, not elsewhere classified
CPT/HCPCS: 73221

== ENCOUNTER → 2023-11-07 08:23 | Outpatient (BNVA) | payer OTHER, SELFPAY | PROVIDERS: PCP Family Medicine; Visit Provider Student in an Organized Health Care Education/Training Program | DX: M19.011 Primary osteoarthritis, right shoulder; M75.41 Impingement syndrome of right shoulder; M75.101 Unspecified rotator cuff tear or rupture of right shoulder, not specified as traumatic; M75.21 Bicipital tendinitis, right shoulder | CPT/HCPCS: 73030 ==

== ENCOUNTER 2023-12-25 05:40 | Day surgery (SDC) | payer OTHER, SELFPAY ==
--- OUTSIDE RECORDS SUMMARY | 2023-12-10 12:13 | XMS_ITS ---
Author Name Unknown Organization [facility] Billing Info Address [address] [place] [id number] Care Team Providers Care Copy Coordinator Name Role Phone MICHI AUGUSTE [phone] REASON FOR VISIT RT SHOULDER ARTHROSCOPY RCR,SAD,DEBRIDEMENT,POSS LHB TENODESIS Encounters Encounter Location Date Provider [id number] [address] [place] [id number] 10/16/2023 MICHI AUGUSTE Plan Of Treatment No Information Progress Notes * Mayuri CRAIN ADOB: [birth year] (63 yo F)Acc No.[id number]:10/16/2023 PROGRESS NOTE Patient:?Mayuri CRAIN Provider:?MICHI AUGUSTE MD :1960???Age:63 Y???Sex:Female D ate:10/16/2023 ?N#:[id number] Address:[address] [place], [place] [id number] Subjective: * Chief Complaints: * ???1. RT SHOULDER ARTHROSCOP Y RCR,SAD,DEBRIDEMENT,POSS LHB TENODESIS. * Medical History:?? Objective: * Vitals:? Assessment: Plan: * Treatment: * * This progress note has not b een verified nor is it considered complete until locked and signed by the provider. Sign off status: Pending * Provider:?MICHI AUGUSTE MD Date:?10/16/19 24 Generated for Claude gasca/Nova/Doug on:?12/10/2023 12:13 PM CDT
--- OUTSIDE RECORDS SUMMARY | 2023-12-10 12:13 | XMS_ITS ---
Author Name Unknown Organization [facility] Billing Info Address [address] [place] [address] Care Team Providers Care In Store Representative Name Role Phone MICHI AUGUSTE [phone] Allergies Allergen (clinical drug ingredient) Drug/Non Drug Allergy documented on EMR Reaction Allergy Type Onset Date Status sulfacetamide Sulfacetamide Unknown Drug Allergy Active REASON FOR VISIT FYI only Encounters Encounter Location Date Provider Diagnosis [id number] AND S[facility] [address] [id number] 10/15/2023 MICHI AUGUSTE Plan Of Treatment No Information Progress Notes * Mayuri CRAIN ADOB: [birth year] (63 yo F)Acc No.[id number]:10/15/2023 Patient:?Mayuri CRAIN :1960???Age:63 Y???Sex:Female Address:[address], [address] Subjective: * Chief Complaints: * ???FYI only * Medical History:?? * Surgical History:?appendecto my 11/2022 * Hospitalization/Major Diagno stic Procedure:? * Medications:? * Allergies:?Sulfacetamide: Al lenkagyno[Allergies Verified] Objective: * Vitals:? * Physical Examination:? Assessment: Plan: * Treatment: * Procedure Codes:? * true * Date:? Generated for Printi ng/Faxing/eTransmitting on:?12/10/2023 12:13 PM CDT
--- OUTSIDE RECORDS SUMMARY | 2023-12-10 12:14 | XMS_ITS ---
Author Name Unknown Organization [facility] Address [address] [place] [address] Care Team Providers Care Mechanical Adjuster Name Role Phone Aleajndro Ross Primary Care Provider [phone] Edward Adrian Unavailable [phone] ALEJANDRO ROSS MD Unavailable Unavaila ble Medications Medication SIG (Take, Route, Frequency, Duration) Notes Start Date End Date Status Amphetamine-Dextroamphet ER 10 MG 1 Oral Once a day for 30 days 12/02/2023 01/01/2024 Active Encounters Encounter Location Date Provider Diagnosis [facility] [address] [place] [id number] 12/02/2023 Alejandro Ross Plan Of Treatment Medication Medication Name Sig Start Date Stop Date Notes Amphetamine-Dextroamphet ER 10 MG 1 Oral Once a day for 30 days 12/02/2023 01/01/2024 Progress Notes * Mayuri CRAIN ADOB: [birth year] (63 yo F)Acc No.[id number]:12/02/2023 Patient:?Mayuri CRAIN :1960???Age:63 Y???Sex:Female Address:[address] [address] * Refills? Refill Amphetamine-Dextroamphet ER Capsule Extended Release 24 Hour, 10 MG, Oral, 30, 1, Once a day, 30 days, Refills=0 * true * Date:? Generated for Claude gasca/Nova/Doug on:?12/10/2023 12:14 PM CDT
--- OUTSIDE RECORDS SUMMARY | 2023-12-10 12:14 | XMS_ITS ---
Author Name Unknown Organization [facility] Address [address] [place] [address] Care Team Providers Care Doctor Podiatric Medicine Name Role Phone Alejandro Ross Primary Care Provider [phone] Edward Adrian Unavailable [phone] ALEJANDRO ROSS MD Unavailable Unavaila ble Medications Medication SIG (Take, Route, Frequency, Duration) Notes Start Date End Date Status Amphetamine-Dextroamphet ER 10 MG 1 Oral Once a day for 30 days 12/02/2023 01/01/2024 Active Encounters Encounter Location Date Provider Diagnosis [facility] [address] [place] [phone] 12/02/2023 Alejandro Ross Plan Of Treatment Medication Medication Name Sig Start Date Stop Date Notes Amphetamine-Dextroamphet ER 10 MG 1 Oral Once a day for 30 days 12/02/2023 01/01/2024 Progress Notes * Mayuri CRAIN ADOB: [birth year] (63 yo F)Acc No.[id number]:12/02/2023 Patient:?Mayuri CRAIN :1960???Age:63 Y???Sex:Female Address:[address] [address] * Refills? Refill Amphetamine-Dextroamphet ER Capsule Extended Release 24 Hour, 10 MG, Oral, 30, 1, Once a day, 30 days, Refills=0 * true * Date:? Generated for Claude gasca/Nova/Doug on:?12/10/2023 12:13 PM CDT
--- OUTSIDE RECORDS SUMMARY | 2023-12-10 12:14 | XMS_ITS ---
Author Name Unknown Organization [facility] Billing Info Address [address] [place] [id number] Care Team Providers Care Nurse Healthcare Manager Name Role Phone MICHI AUGUSTE Unavailable [phone] Allergies Allergen (clinical drug ingredient) Drug/Non Drug Allergy documented on EMR Reaction Allergy Type Onset Date Status sulfacetamide Sulfacetamide Unknown Drug Allergy Active Results Component Value Reference Range Notes XRAY-SHOULDER, RIGHT; COMPLE TE, 2 + VIEWS (28854) IH Reviewed date:10/10/2023 02:55:07 PM Interpretation: Performing Lab: Notes/Report: 0 REASON FOR VISIT Right Shoulder Medications Medication SIG (Take, Route, Frequency, Duration) Notes Start Date End Date Status Levothyroxine Sodium 50 MCG Oral for 90 Days Active Claritin-D 24 Hour 10-240 MG TAKE 1 TABL ET BY MOUTH ONCE DAILY Oral for 30 Days Active Social History Tobacco Status: Question Answer Notes Patient is a non tobacco user Problems Problem Type SNOMED Code ICD Code Onset Dates Problem Status W/U Status Risk Notes Problem 71869644691301014 Traumatic complete tear of right rotator cuff, initial encounter (S46.011A) Active confirmed Problem 815507692904092 Impingement syndrome of right shoulder (M75.41) Active confirmed Problem 294002899 Bicipital tendinitis, right shoulder (M75.21) Active confirmed Vital Signs Height 66 in 10/10/2023 Weight 136 lbs 10/10/2023 BMI 21.95 kg/m2 10/10/2023 Blood pressure systolic 116 mm Hg 10/10/19 24 Blood pressure diastolic 80 mm Hg 024 Heart Rate 79 /min 10/10/2023 Encounters Encounter Location Date Provider Diagnosis [id number] [address] [place] [address] [place], [place] [id number] 10/10/2023 MICHI AUGUSTE Right shoulder pain M25.511 ; Traumatic complete tear of right rotator cuff, initial encounter S46.011A ; Impingement syndrome of right shoulder M75.41 ; Bicipital tendinitis, right shoulder M75.21 and Body mass index (BMI) of 21.0 to 21.9 in adult Z68.21 Assessments Encounter Date Diagnosis (ICD Code) Assessment Notes Treatment Notes Treatment Clinical Notes 10/10/2023 Right shoulder pain (ICD-10 - M25.511) 10/10/2023 Traumatic complete tear of right rotator cuff, initial encounter (ICD-10 - S46.011A) 10/10/2023 Impingement syndrome of right shoulder (ICD-10 - M75.41) 10/10/2023 Bicipital tendinitis, right shoulder (ICD-10 - M75.21) 10/10/2023 Body mass index (BMI) of 21.0 to 21.9 in adult (ICD-10 - Z68.21) 10/10/2023 Other We have discussed risks and benefits of operative versus nonoperative treatments. I have shown the patient her MRI images. She was wishing to pursue operative intervention. Nonoperative management has failed to improve symptoms. Informed consent was obtained. Surgery will consist of right shoulder arthroscopy with rotator cuff repair, subacromial decompression, debridement, possible long head biceps tenodesis. The patient has reached a point in the treatment plan where the determination is to now proceed with surgery. This decision is based upon the complex nature of the injury, how it is impacting the patient's bodily function, as well as the fact that we have discussed inadequate treatment with conservative treatment options. At this stage, the patient will require surgical intervention in order to retain/regain their bodily function in process towards functionality. The patient has elected to proceed with the surgery. The benefits of the surgery and alternatives of the surgery, including both the nonoperative and operative treatment modalities and their respective risks and benefits, were discussed with the patient. The procedure risks including bleeding, infection, damage to nerve/tendon/vessel, neurological damage, DVT risk, pulmonary embolism, chronic pain after the procedure, possible further surgery, hardware failure, and by anesthesia (among other complications) were discussed with the patient and all questions answered. The patient stated they have had no prior adverse reactions to general anesthesia. The patient verbalized consent. The patient was given the opportunity to answer any questions about my complications that I discussed with the patient. The technique of the surgery, and what to expect from the procedure itself was explained, and all questions were answered. Postoperative care and follow up treatment options were discussed, and the patient understands the treatment plan. The possible need for hospitalization was discussed. Patient wishes to proceed with operative intervention. Plan Of Treatment Treatment Notes Assessment Notes Other We have discussed risks and benefits of operative versus nonoperative treatments. I have shown the patient her MRI images. She was wishing to pursue operative intervention. Nonoperative management has failed to improve symptoms. Informed consent was obtained. Surgery will consist of right shoulder arthroscopy with rotator cuff repair, subacromial decompression, debridement, possible long head biceps tenodesis. The patient has reached a point in the treatment plan where the determination is to now proceed with surgery. This decision is based upon the complex nature of the injury, how it is impacting the patient's bodily function, as well as the fact that we have discussed inadequate treatment with conservative treatment options. At this stage, the patient will require surgical intervention in order to retain/regain their bodily function in process towards functionality. The patient has elected to proceed with the surgery. The benefits of the surgery and alternatives of the surgery, including both the nonoperative and operative treatment modalities and their respective risks and benefits, were discussed with the patient. The procedure risks including bleeding, infection, damage to nerve/tendon/vessel, neurological damage, DVT risk, pulmonary embolism, chronic pain after the procedure, possible further surgery, hardware failure, and by anesthesia (among other complications) were discussed with the patient and all questions answered. The patient stated they have had no prior adverse reactions to general anesthesia. The patient verbalized consent. The patient was given the opportunity to answer any questions about my complications that I discussed with the patient. The technique of the surgery, and what to expect from the procedure itself was explained, and all questions were answered. Postoperative care and follow up treatment options were discussed, and the patient understands the treatment plan. The possible need for hospitalization was discussed. Patient wishes to proceed with operative intervention. Progress Notes * Mayuri CRAIN ADOB: [birth year] (63 yo F)Acc No.[id number]:10/10/2023 PROGRESS NOTE Patient:Mayuri CARRION Provider:?MICHI AUGUSTE MD :1960???Age:63 Y???Sex:Female D ate:10/10/2023 ?N#:[id number] Address:[address] [place], [place] [id number] Subjective: * Chief Complaints: * ???Right Shoulder * HPI: ???First Point of Contact Screening:?Do any of the following apply to you?New rash or open sores?No ?Fever and/or chills in the past 7 days?No ?Cough?No ?Muscle or body aches (other than from an injury)?No ?Sore throat?No ?In the past 3 weeks, have you or a close contact traveled outside the [place] and you are now ill??No ?OFFICE USE (If universal masking is not in place, provide patients age 2 years and older with a facemask to wear over their mouth and nose while in the practice.):?Patient answered no to all questions OR only answered yes to question 1 ?No further action needed?10/10/2023 ???Patient History:? 63-year-old right-hand dominant female presents in regards to the pain over her right shoulder.? She underwent two steroidal injections: mid May 2023, July 2023.? Symptoms improved temporarily with the injection, however pain recurred after 7-8 weeks.? MRI right shoulder reveals an interstitial near full-thickness supraspinatus insertional rotator cuff tear, AC joint edema/DJD. [place] the [place] and has family here in [place], [place]. Is wanting to proceed with surgery here in [place]. Likes to paint. * ROS:?General ROS:?Constitutional:?Negative for sleep problems, no weight loss or weight gain.?Dermatology/Integumentary:?Negative for skin issues.?HEENT:?Negative for eye irritation.?Resp/Pulmonology:?Negative for respiratory issues, no allergies.?Cardiology:?Negative for cardiac issues.?Gastroenterology:?Negative for bowel issues.?Genital/Urinary:?Negative for bladder issues.?Neurology:?Negative for headaches, no numbness/tingling.?Psychology:?No signs of depression/anxiety.? * Medical History:?? * Surgical History:?Denies Pas t Surgical History * Hospitalization/Major Diagno stic Procedure:?Denies Past Hospitalization * Family History:? No Family HX reported. * Social History:?Alcohol Use?Patient?uses alcohol ?Drinks per occasion:?2 ???Tobacco Status?Patient is?a non tobacco user * Medications:?TakingClaritin- D 24 Hour 10-240 MG Tablet Extended Release 24 Hour TAKE 1 TABLET BY MOUTH ONCE DAILY Oral Levothyroxine Sodium 50 MCG Tablet Oral Medication List reviewed and reconciled with the patientTaking Claritin-D 24 Hour 10-240 MG Tablet Extended Release 24 Hour TAKE 1 TABLET BY MOUTH ONCE DAILY Oral Taking Levothyroxine Sodium 50 MCG Tablet Oral Medication List reviewed and reconciled with the patient * Allergies:?Sulfacetamide: Al rhonda[Allergies Verified] Objective: * Vitals:?Ht: 66 in, Ht-cm: 16 7.64 cm, Wt: 136 lbs, Wt-k.69 kg, BMI:21.95, Body Surface Area: 1.69, BP:116/80, HR:79, Pain scale: 6. Assessment: * Assessment: 1.?Right shoulder pain - M25 .511 (Primary)?2.?Traumatic complete tear of right rotator cuff, initial encounter - S46.011A?3.?Impingement syndrome of right shoulder - M75.41 4.?Bicipital tendinitis, right shoulder - M75.21?5.?Body mass index (BMI) of 21.0 to 21.9 in adult - Z68.21? Plan: * Treatment: 2.?Others? Notes: We have discussed risks and benefits of operative versus nonoperative treatments. I have shown the patient her MRI images. She was wishing to pursue operative intervention. Nonoperative management has failed to improve symptoms. Informed consent was obtained. Surgery will consist of right shoulder arthroscopy with rotator cuff repair, subacromial decompression, debridement, possible long head biceps tenodesis. The patient has reached a point in the treatment plan where the determination is to now proceed with surgery. This decision is based upon the complex nature of the injury, how it is impacting the patient's bodily function, as well as the fact that we have discussed inadequate treatment with conservative treatment options. At this stage, the patient will require surgical intervention in order to retain/regain their bodily function in process towards functionality. The patient has elected to proceed with the surgery. The benefits of the surgery and alternatives of the surgery, including both the nonoperative and operative treatment modalities and their respective risks and benefits, were discussed with the patient. The procedure risks including bleeding, infection, damage to nerve/tendon/vessel, neurological damage, DVT risk, pulmonary embolism, chronic pain after the procedure, possible further surgery, hardware failure, and by anesthesia (among other complications) were discussed with the patient and all questions answered. The patient stated they have had no prior adverse reactions to general anesthesia. The patient verbalized consent. The patient was given the opportunity to answer any questions about my complications that I discussed with the patient. The technique of the surgery, and what to expect from the procedure itself was explained, and all questions were answered. Postoperative care and follow up treatment options were discussed, and the patient understands the treatment plan. The possible need for hospitalization was discussed. Patient wishes to proceed with operative intervention.?? * Procedure Codes:?41820 X-RAY EXAM OF SHOULDER * Preventive Medicine:? ??[facility] (Patient Assessment Form):?Fall Risk Assessment?Date Screening Completed:?10/10/2023 ?Increased Fall Risk factors:?No fall risk factors ?History Falls in Past Year:?One fall with injury in past year ??Quality Measures:?Breast cancer screening:?Patient's?Screening mammography results were not documented and reviewed, reason not otherwise specified ?Colorectal Cancer Screening:?Patient's?Colorectal cancer screening results were not documented and reviewed, reason not otherwise specified * Care Plan Details* * Sign off status: Completed Addendum: * ? true * Provider:?MICHI AUGUSTE MD Date:?10/10/19 24 Generated for Coleeni elo/Nova/eTwarrensmitting on:?12/10/2023 12:13 PM CDT History and Physical Notes * HPI (History of Present Illness) Category Sub-Category Detail Notes First Point of Contact Screening Do any of the following apply to you? New rash or open sores: No Fever and/or chills in the past 7 days: No Cough: No Muscle or body aches (other than from an injury): No Sore throat: No In the past 3 weeks, have yo u or a close contact traveled outside the [place] and you are now ill? : No OFFICE USE (If universal mas last is not in place, provide patients age 2 years and older with a facemask to wear over their mouth and nose while in the practice.):: Patient answered no to all questions OR only answered yes to question 1 ?No further action needed : 10/10/2023
--- OUTSIDE RECORDS SUMMARY | 2023-12-10 12:14 | XMS_ITS | Patient Health Record ---
Author Name Unknown Organization [facility] Billing Info Address [address] [place] [address] Care Team Providers Care Contracts Analyst Name Role Phone MICHI AUGUSTE Unavailable [phone] Allergies Allergen (clinical drug ingredient) Drug/Non Drug Allergy documented on EMR Reaction Allergy Type Onset Date Status sulfacetamide Sulfacetamide Unknown Drug Allergy Active Results Component Value Reference Range Notes XRAY-SHOULDER, RIGHT; COMPLE TE, 2 + VIEWS (49650) IH Reviewed date:10/10/2023 02:55:07 PM Interpretation: Performing Lab: Notes/Report: Reason For Referral No Information Medications Medication SIG (Take, Route, Frequency, Duration) [...] Problem Status W/U Status Risk Notes Problem 692133187 Bicipital tendinitis, right shoulder (M75.21) Active confirmed Problem 944467528601703 Impingement syndrome of right shoulder (M75.41) Active confirmed Problem Right shoulder pain (7066610692) Right shoulder pain (M25.511) Active confirmed Problem 85868122351909798 Traumatic complete tear of right rotator cuff, initial encounter (S46.011A) Active confirmed Vital Signs Heart Rate 79 /min 10/10/2023 Blood pressure diastolic 80 mm Hg 10/10/2023 Height 66 in 10/10/2023 Blood pressure systolic 116 mm Hg 10/10/2023 Weight 136 lbs 10/10/2023 BMI 21.95 kg/m2 10/10/2023 Encounters Encounter Location Date Provider Diagnosis [id number] [address] [place] [address] [place], [place] [id number] 10/15/2023 MICHI AUGUSTE [id number] [address] [place] [place], [place] [id number] 10/10/2023 MICHI AUGUSTE Right shoulder pain M25.511 [...] proceed with operative intervention. Plan Of Treatment No Information Insurance Providers Payer Name Payer Address Payer Phone Subscriber Number Group Number Insured Name Patient Relationship to Insured Coverage Start Date Coverage End Date [employer] [address] [address] JAMIE RICK [id number] [phone] [id number] Mayuri Crain Self - patient is the insured 4 4 Medical (General) History Medical History History ICD Code Hypothyroidism Born with one Kidney Surgical History Surgery Date(Month/Year) appendectomy 11/2022
--- OUTSIDE RECORDS SUMMARY | 2023-12-10 12:14 | XMS_ITS ---
Author Name Unknown Organization [facility] Address [address] [place] [address] Care Team Providers Care Levi Maker Name Role Phone Alejandro Ross Primary Care Provider [phone] Edward Adrian Unavailable [phone] ALEJANDRO ROSS MD Unavailable Unavaila ble Medications Medication SIG (Take, Route, Frequency, Duration) Notes Start Date End Date Status Amphetamine-Dextroamphet ER 10 MG TAKE ONE CAPSULE BY MOUTH EVERY MORNING FOR 30 DAYS Oral for 30 Days 12/02/2023 01/01/2024 Active Encounters Encounter Location Date Provider Diagnosis [facility] [address] [place] [phone] 12/02/2023 Alejandro Ross Plan Of Treatment Medication Medication Name Sig Start Date Stop Date Notes Amphetamine-Dextroamphet ER 10 MG TAKE ONE CAPSULE BY MOUTH EVERY MORNING FOR 30 DAYS Oral for 30 Days 12/02/2023 01/01/2024 Progress Notes * Mayuri CRAIN ADOB: [birth year] (63 yo F)Acc No.[id number]:12/02/2023 Patient:?Mayuri CRAIN :1960???Age:63 Y???Sex:Female Address:[address] [phone] * Refills? Refill Amphetamine-Dextroamphet ER Capsule Extended Release 24 Hour, 10 MG, Oral, 30 Each, TAKE ONE CAPSULE BY MOUTH EVERY MORNING FOR 30 DAYS, 30 Days, Refills=0 * true * Date:? Generated for Claude gasca/Nova/Charanjititting on:?12/10/2023 12:14 PM CDT
--- OUTSIDE RECORDS SUMMARY | 2023-12-10 12:14 | XMS_ITS | Patient Health Record ---
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 Name Role Phone Alejandro Ross Primary Care Provider [phone] Shun Smith Unavailable [phone] ALEJANDRO ROSS MD Unavailable Unavaila ble Allergies Allergen (clinical drug ingredient) Drug/Non Drug Allergy documented on EMR Reaction Allergy Type Onset Date Status Substance with sulfonamide structure and antibacterial mechanism of action (substance) Sulfa Antibiotics Unknown Drug Allergy Active Reason For Referral Reason Supraspinatus Tendon Impingement - Rt Diagnosis 1 Right supraspinatus tendinitis (M75.91) Referral Organization [facility] Referring Provider First Name Flaco haney Referring Provider Last Name Renaldo Referring Provider Speciality Internal M edicine Referred Provider SHUN SMITH Referred Provider Specialty Orthopedic S urgery General Notes Lore Veloz 08:52:15 AM >faxed to Aj Singer Heidi 09/18/2023 08:08:13 AM >09/22 PER Aj ASHRAF Heidi 09/23/2023 02:37:33 PM >PROGRESS NOTES IN DR. SMITH ENCOUNTER Referral Priority Routine Referral Appointment Date 09/23/2023 Reason Supraspinatus Tendon Impingement - Rt Diagnosis 1 Right supraspinatus tendinitis (M75.91) Referral Organization [facility] Referring Provider First Name Flaco haney Referring Provider Last Name Renaldo Referring Provider Speciality Internal M edicine Referred Provider Sharad Sommer Referred Provider Specialty Orthopedic S urgery General Notes Lore Veloz 12:49:03 PM >Faxed to Aj Ambrose Heidi 10/23/2023 09:04:08 AM >PER CLINIC SUPPORT TEAM, SHE IS SCHEDULED 11/06 @ 8:30, Nicolasa Rocha 12/04/2023 10:15:33 AM >PER MAY FROM CLINIC SUPPORT TEAM SHE IS SENDING A NOTE TO THE CLINIC TO SEE IF THEY WILL SEND NOTES, Nicolasa Rocha 12/04/2023 02:53:37 PM >PROGRESS NOTES IN REFERRAL FILE Referral Priority Routine Referral Appointment Date 11/07/2023 Medications Medication SIG (Take, Route, Frequency, Duration) Notes Start Date End Date Status Levothyroxine Sodium 50 MCG 1 tablet in the morning on an empty stomach Orally Once a day for 90 days Active Advair Diskus 500-50 MCG/ACT 1 puff Inhalation Twice a day for 30 days 12/06/2022 Not-Taking Amphetamine-Dextroamphet ER 10 MG 1 Oral Once a day for 30 days 12/02/2023 01/01/2024 Active Doxycycline Hyclate 100 MG 1 tablet Orally BID for 10 days Not-Taking Claritin-D 24 Hour 10-240 MG 1 tablet Orally Once a day for 90 days 06/17/2023 06/11/2024 Not-Taking Scopolamine 1 MG/3DAYS 1 patch to skin b ehind the ear as needed Transdermal every three days for 30 day(s) 07/31/2023 Not-Taking Loratadine 10 MG as directed Orally Not-Taking Social History Tobacco Use: Social History Observation Description Date Details (start date - stop date) Never Smoker NA - NA xTobacco Use/Smoking Question Answer Notes Are you a nonsmoker Alcohol Screen (Audit-C) Question Answer Notes Did you have a drink contain ing alcohol in the past year? Yes How often did you have a dri nk containing alcohol in the past year? 2 to 3 times a week (3 points) Points 3 Interpretation Positive Problems Problem Type SNOMED Code ICD Code Onset Dates Problem Status W/U Status Risk Notes Problem 512824106 Attention defici t disorder (ADD) in adult (F98.8) Active confirmed Problem 736182051 Acquired hypothyroidism (E03.9) Active confirmed Problem [id number] Right supraspinatus tendinitis (M75.91) Active confirmed Vital Signs Heart Rate 82 /min 08/12/2023 Temperature 97.3 degrees Fahrenheit 08/12/2023 Height-cm 167.64 cm 09/23/2023 Oximetry 99 % 08/12/2023 Blood pressure diastolic 88 mm Hg 09/23/2023 Weight-kg 92.0 kg 09/23/2023 Height 66 in 09/23/2023 Blood pressure systolic 118 mm Hg 09/23/2023 Weight 202.82 lbs 09/23/2023 BMI 32.73 kg/m2 09/23/2023 Procedures Procedure Date Ordered Date Performed Result Body Sit e DRAIN/INJ JOINT/BURSA W/O US 06/17/2023 06/17/2023 N/A DRAIN/INJ JOINT/BURSA W/O US 08/12/2023 08/13/2023 N/A Encounters Encounter Location Date Provider Diagnosis [facility] [address] [place] [phone] 01/01/2023 Alejandro Ross Pharyngitis due to Streptococcus species J02.0 ; Acquired hypothyroidism E03.9 and Attention deficit disorder (ADD) in adult F98.8 [facility] [address] [place] [phone] 06/17/2023 Alejandro Ross Right supraspinatus tendinitis M75.91 [facility] [address] [address] 08/12/2023 Alejandro Ross Right supraspinatus tendinitis M75.91 [facility] [address] [place] [address] 09/23/2023 Shun Smith Right shoulder pain, unspecified chronicity M25.511 and Sprain of right rotator cuff capsule, initial encounter S43.421A [facility] [address] [place] [address] 12/31/2022 Alejandro Ross [facility] [address] [place] [address] 01/08/2023 Alejandro Ross [facility] [address] [place] [phone] 02/08/2023 Alejandro [facility] [address] [facility] [address] 02/08/2023 Alejandro Aleg[facility] [address] [facility] [address] 02/08/2023 Alejandro Alegre [facility] [address] [facility] [address] 02/25/2023 Alejandro Aleg[facility] [address] [facility] [address] 02/25/2023 Alejandro lAegre [facility] [address] [facility] [address] 02/25/2023 Alejandro Aleg[facility] [address] [facility] [address] 03/27/2023 Alejandro Aleg[facility] [address] [facility] [address] 04/19/2023 Alejandro Alegre [facility] [address] [place] [address] 05/17/2023 Alejandro Alegre [facility] [address] [facility] [address] 06/17/2023 Alejandro Alegre [facility] [address] [place] [address] 07/17/2023 Alejandro Ross [facility] [address] [place] [address] 08/28/2023 Alejandro Ross Right supraspinatus tendinitis M75.91 [facility] [address] [place] [address] 09/02/2023 Alejandro Ross [facility] [address] [place] [address] 09/16/2023 Alejandro Ross Right supraspinatus tendinitis M75.91 [facility] [address] [place] [address] 09/25/2023 Alejandro Ross [facility] [address] [place] [address] 10/14/2023 Alejandro Ross Right supraspinatus tendinitis M75.91 [facility] [address] [place] [address], [place] [address] 10/14/2023 Shungerardo Cooneyeder [facility] [address] [place] [address] 10/22/2023 Alejandro Ross [facility] [address] [place] [address] 12/02/2023 [facility] [address] [place] [address] 12/02/2023 Alejandro Ross [facility] [address] [place] [address] 12/02/2023 Alejandro Ross 07/31/2023 Alejandro Ross 07/31/2023 Alejandro Ross Assessments Encounter Date Diagnosis (ICD Code) Assessment Notes Treat ment Notes Treatment Clinical Notes 01/01/2023 Acquired hypothyroidism (ICD-10 - E03.9) 06/17/2023 Right supraspinatus tendinitis (ICD-10 - M75.91) 08/12/2023 Right supraspinatus tendinitis (ICD-10 - M75.91) 08/28/2023 Right supraspinatus tendinitis (ICD-10 - M75.91) 09/16/2023 Right supraspinatus tendinitis (ICD-10 - M75.91) 09/23/2023 Sprain of right rotator cuff capsule, initial encounter (ICD-10 - S43.421A) 09/23/2023 Right shoulder pain, unspecified chronicity (ICD-10 - M25.511) 10/14/2023 Right supraspinatus tendinitis (ICD-10 - M75.91) 01/01/2023 Pharyngitis due to Streptococcus species (ICD-10 - J02.0) 01/01/2023 Attention deficit disorder (ADD) in adult (ICD-10 - F98.8) Plan Of Treatment Pending Test Test Name Order Date X-RAY EXAM OF SHOULDER-[id number] 09/23/2023 Comprehensive Metabolic Panel [id number] 08/0 06/2023 CBC Reflex Man Diff 73007, 79401 024 Chest PA/Lat-35638 09/23/2023 Electrocardiogram 12 Lead Tracing-[id number] 09/23/2023 Insurance Providers Payer Name Payer Address Payer Phone Subscriber Number Group Number Insured Name Patient Relationship to Insured Coverage Start Date Coverage End Date [email or web address] [address] [address] [place] [phone] [id number] Mayuri Crain Self - patient is the insured [employer] [address] [place] [phone] [id number] Mayuri Crain Self - patient is the insured Medications Administered Medication Instructions Date of Administration Dosage Notes BUPivacaine HCl 06/17/2023 1 mL BUPivacaine HCl 08/12/2023 1 mL DEPO-Medrol 06/17/2023 80 mg DEPO-Medrol 08/12/2023 80 mg Medical (General) History Medical History History ICD Code Born with 1 kidney Surgical History Surgery Date(Month/Year) Bilateral eyes ablasion 2002 appendectomy 11/2022 Hospitalization History Reason Date(Month/Year) same as surgery
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
[2023-12-25] VITALS (13 sets, daily range): BP systolic 129–163; BP diastolic 79–92; PULSE 63–72; RESP 16–20; TEMP 36.1–36.6; O2SAT 94–100; BMI 21.7
--- OUTSIDE RECORDS SUMMARY | 2023-12-25 05:42 | XMS_ITS ---
Author Name Unknown Organization [facility] Billing Info Address [address] [place] [address] Care Team Providers Care Security System Engineer Name Role Phone MICHI AUGUSTE [phone] REASON FOR VISIT RT SHOULDER ARTHROSCOPY RCR,SAD,DEBRIDEMENT,POSS LHB TENODESIS Encounters Encounter Location Date Provider [id number] [address] [place] [id number] 10/16/2023 MICHI AUGUSTE Plan Of Treatment No Information Progress Notes * Mayuri CRAIN ADOB: [birth year] (63 yo F)Acc No.[id number]:10/16/2023 PROGRESS NOTE Patient:?Mayuri CRAIN Provider:?MICHI AUGUSTE MD :1960???Age:63 Y???Sex:Female D ate:10/16/2023 ?N#:[id number] Address:[address] [place], [place] [id number] Subjective: * Chief Complaints: * ???1. RT SHOULDER ARTHROSCOP Y RCR,SAD,DEBRIDEMENT,POSS LHB TENODESIS. * Medical History:?? Objective: * Vitals:? Assessment: Plan: * Treatment: * * This progress note has not b een verified nor is it considered complete until locked and signed by the provider. Sign off status: Pending * Provider:?MICHI AUGUSTE MD Date:?10/16/19 24 Generated for Claude gasca/Nova/Doug on:?12/25/2023 05:42 AM COAT JOINER
--- OUTSIDE RECORDS SUMMARY | 2023-12-25 05:43 | XMS_ITS ---
Author Name Unknown Organization [facility] Billing Info Address [address] [place] [address] Care Team Providers Care Stone Layout Marker Name Role Phone MICHI AUGUSTE [phone] Allergies Allergen (clinical drug ingredient) Drug/Non Drug Allergy documented on EMR Reaction Allergy Type Onset Date Status sulfacetamide Sulfacetamide Unknown Drug Allergy Active REASON FOR VISIT FYI only Encounters Encounter Location Date Provider Diagnosis [id number] [facility] [address] [id number] 10/15/2023 MICHI AUGUSTE Plan Of Treatment No Information Progress Notes * Mayuri CRAIN ADOB: [birth year] (63 yo F)Acc No.[id number]:10/15/2023 Patient:?Mayuri CRAIN :1960???Age:63 Y???Sex:Female Address:[address], [address] Subjective: * Chief Complaints: * ???FYI only * Medical History:?? * Surgical History:?appendecto my 11/2022 * Hospitalization/Major Diagno stic Procedure:? * Medications:? * Allergies:?Sulfacetamide: Al lenkagyno[Allergies Verified] Objective: * Vitals:? * Physical Examination:? Assessment: Plan: * Treatment: * Procedure Codes:? * true * Date:? Generated for Printi ng/Faxing/eTransmitting on:?12/25/2023 05:43 AM BLOCK CABLEMAN
--- OUTSIDE RECORDS SUMMARY | 2023-12-25 05:43 | XMS_ITS | Patient Health Record ---
Author Name Unknown Organization [facility] Billing Info Address [address] [place] [address] Care Team Providers Care Newspaper Copy Editor Name Role Phone MICHI AUGUSTE Unavailable [phone] Allergies Allergen (clinical drug ingredient) Drug/Non Drug Allergy documented on EMR Reaction Allergy Type Onset Date Status sulfacetamide Sulfacetamide Unknown Drug Allergy Active Results Component Value Reference Range Notes XRAY-SHOULDER, RIGHT; COMPLE TE, 2 + VIEWS (57699) IH Reviewed date:10/10/2023 02:55:07 PM Interpretation: Performing [...] Problem Status W/U Status Risk Notes Problem 378503814 Bicipital tendinitis, right shoulder (M75.21) Active confirmed Problem 907921990829192 Impingement syndrome of right shoulder (M75.41) Active confirmed Problem Right shoulder pain (2088641886) Right shoulder pain (M25.511) Active confirmed Problem 70132942921652534 Traumatic complete tear of right rotator cuff, initial encounter (S46.011A) Active confirmed Vital Signs Heart Rate 79 /min 10/10/2023 Blood pressure diastolic 80 mm Hg 10/10/2023 Height 66 in 10/10/2023 Blood pressure systolic 116 mm Hg 10/10/2023 Weight 136 lbs 10/10/2023 BMI 21.95 kg/m2 10/10/2023 Encounters Encounter Location Date Provider Diagnosis [id number] [facility] [address] [place], [place] [id number] 10/15/2023 MICHI AUGUSTE [id number] [address] [facility] [address] [place], [place] [id number] 10/10/2023 MICHI AUGUSTE Right shoulder pain M25.511 [...] Date Coverage End Date [employer] [address] [address] JAMIE RICK [id number] Mayuri Crain Self - patient is the insured 4 4 Medical (General) History Medical History History ICD Code Hypothyroidism Born with one Kidney Surgical History Surgery Date(Month/Year) appendectomy 11/2022
--- OUTSIDE RECORDS SUMMARY | 2023-12-25 05:43 | XMS_ITS ---
Author Name Unknown Organization [facility]oseph Billing Info Address [address] [place] [address] Care Team Providers Care Nutrition Services Worker Name Role Phone MICHI AUGUSTE Unavailable [phone] Allergies Allergen (clinical drug ingredient) Drug/Non Drug Allergy documented on EMR Reaction Allergy Type Onset Date Status sulfacetamide Sulfacetamide Unknown Drug Allergy Active Results Component Value Reference Range Notes XRAY-SHOULDER, RIGHT; COMPLE TE, 2 + VIEWS (46932) IH Reviewed date:10/10/2023 02:55:07 PM Interpretation: Performing [...] Problem Status W/U Status Risk Notes Problem 80775583912408347 Traumatic complete tear of right rotator cuff, initial encounter (S46.011A) Active confirmed Problem 391619852880638 Impingement syndrome of right shoulder (M75.41) Active confirmed Problem 684393648 Bicipital tendinitis, right shoulder (M75.21) Active confirmed Vital Signs Height 66 in 10/10/2023 Weight 136 lbs 10/10/2023 BMI 21.95 kg/m2 10/10/2023 Blood pressure systolic 116 mm Hg 10/10/19 24 Blood pressure diastolic 80 mm Hg 024 Heart Rate 79 /min 10/10/2023 Encounters Encounter Location Date Provider Diagnosis [id number] [address] [place] [address] [place], [place] [id number] 10/10/2023 MICHI AUGUSTE Right shoulder pain M25.511 [...] Mayuri CRAIN ADOB: [birth year] (63 yo F)Acc No.[id number]:10/10/2023 PROGRESS NOTE Patient:Mayuri CARRION Provider:?MICHI AUGUSTE MD :1960???Age:63 Y???Sex:Female D ate:10/10/2023 ?N#:[id number] Address:[address] [place], [place] [address] Subjective: * Chief Complaints: * ???Right Shoulder [...] AC joint edema/DJD. [place] and has family here in [place], [place]. Is wanting to proceed with surgery here in [place]. Likes to paint. * ROS:?General ROS:?Constitutional:?Negative for [...] to proceed with operative intervention.?? * Procedure Codes:?90550 X-RAY EXAM OF SHOULDER * Preventive Medicine:? ??[place] PAF (Patient Assessment Form):?Fall Risk Assessment?Date Screening [...] AUGUSTE MD Date:?10/10/19 24 Generated for Coleeni elo/Nova/Stephansmitting on:?12/25/2023 05:43 AM RETAIL SALES LEAD History and Physical Notes * HPI (History [...]
--- OUTSIDE RECORDS SUMMARY | 2023-12-25 05:44 | XMS_ITS | Patient Health Record ---
Author Name Unknown Organization [facility] Address [address] [place] [address] Care Team Providers Care Launch Manager Name Role Phone Alejandro Ross Primary Care Provider [phone] Shun Smith Unavailable [phone] ALEJANDRO ROSS MD Unavailable Unavaila ble Allergies Allergen (clinical drug ingredient) Drug/Non Drug Allergy documented on EMR Reaction Allergy Type Onset Date Status Substance with sulfonamide structure and antibacterial mechanism of action (substance) Sulfa Antibiotics Unknown Drug Allergy Active Reason For Referral Reason Supraspinatus Tendon Impingement - Rt Diagnosis 1 Right supraspinatus tendinitis (M75.91) Referral Organization [facility] Referring Provider First Name [...] 1 Right supraspinatus tendinitis (M75.91) Referral Organization [facility] Referring Provider First Name [...] Problem Status W/U Status Risk Notes Problem 748694423 Attention defici t disorder (ADD) in adult (F98.8) Active confirmed Problem 245183482 Acquired hypothyroidism (E03.9) Active confirmed Problem 69919795525215087 Right supraspinatus tendinitis (M75.91) Active confirmed Vital [...] N/A Encounters Encounter Location Date Provider Diagnosis [facility] [address] [place] [address] 01/01/2023 Alejandro Ross Pharyngitis due to Streptococcus species J02.0 ; Acquired hypothyroidism E03.9 and Attention deficit disorder (ADD) in adult F98.8 [facility] [address] [place] [address] 06/17/2023 Alejandro Ross Right supraspinatus tendinitis M75.91 [facility] [address] [address] 08/12/2023 Alejandro Ross Right supraspinatus tendinitis M75.91 [facility] [address] [place] [address] 09/23/2023 Shun Smith Right shoulder pain, unspecified chronicity M25.511 and Sprain of right rotator cuff capsule, initial encounter S43.421A [facility] [address] [place] [address] 12/31/2022 Alejandro Ross [facility] [address] [place] [address] 01/08/2023 Alejandro Ross [facility] [address] [place] [address] 02/08/2023 Ale[facility]andro [facility] [address] [place] [place] [address] 02/08/2023 Alejandro [facility]leg[facility] [address] [place] [address] 02/08/2023 Alejandro [facility]leg[facility] [address] [place] [place] [address] 02/25/2023 Alejandro Aleg[facility] [address] [place] [place] [address] 02/25/2023 Alejandro Aleg[facility] [address] [place] [place] [address] 02/25/2023 Alejandro [facility]leg[facility] [address] [place] [place] [address] 03/27/2023 Alejandro [facility]leg[facility] [address] [place] [place] [address] 04/19/2023 Alejandro Aleg[facility] [address] [place] [place] [address] 05/17/2023 Alejandro Alegre [facility] [address] [place] [place] [address] 06/17/2023 Alejandro Alegre [facility] [address] [place] [address] 07/17/2023 Alejandro Ross [facility] [address] [place] [address] 08/28/2023 Alejandro Ross Right supraspinatus tendinitis M75.91 [facility] [address] [place] [address] 09/02/2023 Alejandro Ross [facility] [address] [place] [address] 09/16/2023 Alejandro Ross Right supraspinatus tendinitis M75.91 [facility] [address] [place] [address] 09/25/2023 Alejandro Ross [facility] [address] [place] [address] 10/14/2023 Alejandro Ross Right supraspinatus tendinitis M75.91 [facility] [address] [place] [address], [place] [address] 10/14/2023 Shungerardo Cooneyeder [facility] [address] [place] [address] 10/22/2023 Alejandro Ross [facility] [address] [place] [address] 12/02/2023 Alejandro [facility] [address] [place] [address] 12/02/2023 Alejandro Ross [facility] [address] [place] [address] 12/02/2023 Alejandro Ross 07/31/2023 Alejandro Ross 07/31/2023 [...] Test Name Order Date X-RAY EXAM OF SHOULDER-36839 09/23/2023 Comprehensive Metabolic Panel 28360 08/0 06/2023 CBC Reflex Man Diff 01659, 43588 024 Chest PA/Lat-82613 09/23/2023 Electrocardiogram 12 Lead Tracing-34819 09/23/2023 Insurance Providers Payer Name Payer Address Payer Phone Subscriber Number Group Number Insured Name Patient Relationship to Insured Coverage Start Date Coverage End Date [employer] [address] [address] [place] [phone] [id number] Mayuri Crain Self - patient is the insured [employer] [address] PRABHJOTJAMIE BEATTY [phone] [id number] Mayuri Crain Self - patient is the insured Medications Administered Medication Instructions Date of Administration Dosage Notes BUPivacaine HCl 06/17/2023 1 mL BUPivacaine HCl 08/12/2023 1 mL DEPO-Medrol 06/17/2023 80 mg DEPO-Medrol 08/12/2023 80 mg Medical (General) History Medical History History ICD Code Born with 1 kidney Surgical History Surgery Date(Month/Year) appendectomy 11/2022 ablasion 2003 Bilateral eyes Hospitalization History Reason Date(Month/Year) same as surgery
--- OUTSIDE RECORDS SUMMARY | 2023-12-25 05:44 | XMS_ITS ---
Author Name Unknown Organization [facility] Address [address] [place] [address] Care Team Providers Care Sales Representative Girls' Apparel Name Role Phone Alejandro Ross Primary Care Provider [phone] Edward Adrian Unavailable [phone] ALEJANDRO ROSS MD Unavailable Unavaila ble Medications Medication SIG (Take, Route, Frequency, Duration) Notes Start Date End Date Status Amphetamine-Dextroamphet ER 10 MG 1 Oral Once a day for 30 days 12/02/2023 01/01/2024 Active Encounters Encounter Location Date Provider Diagnosis [facility] [address] [place] [address] 12/02/2023 Alejandro Ross Plan Of Treatment Medication Medication Name Sig Start Date Stop Date Notes Amphetamine-Dextroamphet ER 10 MG 1 Oral Once a day for 30 days 12/02/2023 01/01/2024 Progress Notes * Mayuri CRAIN ADOB: [birth year] (63 yo F)Acc No.[id number]:12/02/2023 Patient:?Mayuri CRAIN :1960???Age:63 Y???Sex:Female Address:[address] [address] * Refills? Refill Amphetamine-Dextroamphet ER Capsule Extended Release 24 Hour, 10 MG, Oral, 30, 1, Once a day, 30 days, Refills=0 * true * Date:? Generated for Claude gasca/Nova/Doug on:?12/25/2023 05:43 AM NAIL ASSEMBLY MACHINE OPERATOR
--- OUTSIDE RECORDS SUMMARY | 2023-12-25 05:44 | XMS_ITS ---
Author Name Unknown Organization [facility] Address [address] [place] [address] Care Team Providers Care Baseball Club Manager Name Role Phone Alejandro Ross Primary Care Provider [phone] Edward Adrian Unavailable [phone] ALEJANDRO ROSS MD Unavailable Unavaila ble Medications Medication SIG (Take, Route, Frequency, Duration) Notes Start Date End Date Status Amphetamine-Dextroamphet ER 10 MG 1 Oral Once a day for 30 days 12/02/2023 01/01/2024 Active Encounters Encounter Location Date Provider Diagnosis [facility] [address] [place] [address] 12/02/2023 Alejandro Ross Plan Of Treatment Medication Medication Name Sig Start Date Stop Date Notes Amphetamine-Dextroamphet ER 10 MG 1 Oral Once a day for 30 days 12/02/2023 01/01/2024 Progress Notes * Mayuri CRAIN ADOB: [birth year] (63 yo F)Acc No.[id number]:12/02/2023 Patient:?Mayuri CRAIN :1960???Age:63 Y???Sex:Female Address:[address] [address] * Refills? Refill Amphetamine-Dextroamphet ER Capsule Extended Release 24 Hour, 10 MG, Oral, 30, 1, Once a day, 30 days, Refills=0 * true * Date:? Generated for Claude gasca/Nova/Doug on:?12/25/2023 05:43 AM SPECIAL EDUCATION PARA PROFESSIONAL
--- OUTSIDE RECORDS SUMMARY | 2023-12-25 05:44 | XMS_ITS ---
Author Name Unknown Organization [facility] Address [address] [place] [address] Care Team Providers Care Padded Products Inspector Trimmer Name Role Phone Alejandro Ross Primary Care Provider Edward Adrian Unavailable [phone] ALEJANDRO ROSS MD Unavailable Unavaila ble Medications Medication SIG (Take, Route, Frequency, Duration) Notes Start Date End Date Status Amphetamine-Dextroamphet ER 10 MG TAKE ONE CAPSULE BY MOUTH EVERY MORNING FOR 30 DAYS Oral for 30 Days 12/02/2023 01/01/2024 Active Encounters Encounter Location Date Provider Diagnosis [facility] [address] [place] [address] 12/02/2023 Alejandro Ross Plan Of Treatment Medication Medication Name Sig Start Date Stop Date Notes Amphetamine-Dextroamphet ER 10 MG TAKE ONE CAPSULE BY MOUTH EVERY MORNING FOR 30 DAYS Oral for 30 Days 12/02/2023 01/01/2024 Progress Notes * Mayuri CRAIN ADOB: [birth year] (63 yo F)Acc No.[id number]:12/02/2023 Patient:?Mayuri CRAIN :1960???Age:63 Y???Sex:Female Address:[address] [address] * Refills? Refill Amphetamine-Dextroamphet ER Capsule Extended Release 24 Hour, 10 MG, Oral, 30 Each, TAKE ONE CAPSULE BY MOUTH EVERY MORNING FOR 30 DAYS, 30 Days, Refills=0 * true * Date:? Generated for Claude gasca/Nova/Charanjititting on:?12/25/2023 05:43 AM ELECTROMECHANICAL TECHNOLOGIST
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
[2023-12-25] MEDS: acetaminophen 1,000 MG/100 ML PIGGYBACK 400 MG IV (06:14)
[2023-12-25] MEDS: scopolamine 1.5 Patch 1 PATCH TRANSDERMA (06:15)
[2023-12-25] MEDS: ketorolac 30 mg/mL INJ IVP (06:17)
[2023-12-25] MEDS: sodium chloride 0.9% 1,000 ML 30 ML IV (06:18)
--- NOTE | 2023-12-25 06:46 | PC.NURSE ---
0635: right shoulder block administered by PASTORA using 20 ml of .5% ropivicaine
--- NOTE | 2023-12-25 06:51 | P.ANESASSM_ITS ---
Pre-Anesthetic Assessment Height/Weight: Height 1.68 m Weight 61.235 kg Temp Pulse Resp BP Pulse Ox O2 Del Method 97.8 F 69 18 129/79 99 Room Air 12/25/23 06:01 12/25/23 06:01 12/25/23 06:01 12/25/23 06:15 12/25/23 06:01 12/25/23 06:07 Operation Date: 12/25/23 07:00 Proposed Procedures p Shoulder Arthroscopy(Right) - Sharad [place], DO s Rotator Cuff Repair - Arthroscopy(Right) - Sharad [place], DO s Subacromial Decompression(Right) - Sharad [place], DO s AC Joint Resection(Right) - Sharad Kemal, DO Familial anesthetic complications: None Was Beta Perri taken within 24 hours: N/A Was Clonidine taken within 24 hours: N/A Last intake: Intake Last Liquid Date 12/24/23 Last Liquid Time 22:00 Last Solid Date 12/24/23 Last Solid Time 19:00 Social No alcohol and No tobacco Exam alert, oriented x 3, clear to auscultation bilaterally and regular rate & rhythm Airway Mallampati: Class II Dentition: full Metabolic Thyroid Disease Anesthetic Plan ASA status: 2 Anesthesia: General and Regional (specify below) Risk of > 500 ml blood loss (7ml/kg in children): No Medications/Allergies Home Medications Medication Instructions Recorded Confirmed Last Taken Type ibuprofen 200 mg capsule 200 mg PO Q6H PRN Pain 11/07/23 12/24/23 12/17/23 History lidocaine 4 % topical patch 1 patch topical DAILY PRN Pain 11/07/23 12/24/23 12/23/23 History dextroamphetamine-amphetamine ER 10 mg PO DAILY 12/24/23 12/24/23 12/24/23 History 10 mg 24hr capsule,extend release fluticasone 500 mcg-salmeterol 50 1 inh inhalation PRN 12/24/23 12/24/23 Unknown History mcg/dose blistr powdr for inhalation (Lo Inhub) levothyroxine 50 mcg tablet 50 mcg PO DAILY 12/24/23 12/24/23 12/24/23 History loratadine-pseudoephedrine ER 10 1 tab PO DAILY 12/24/23 12/24/23 12/24/23 History mg-240 mg tablet,extended [id number] (Claritin-D 24 Hour) Allergies Allergy/AdvReac Type Severity Reaction Status Date / Time Sulfa (Sulfonamide Allergy ALGY-Rash Verified 11/07/23 08:33 Antibiotics) Current Medications Generic Name Dose Route Start Last Admin Trade Name Freq PRN Reason Stop Dose Admin Sodium Chloride 1,000 mls @ 30 mls/hr 12/25/23 06:00 12/25/23 06:18 Sodium Chloride 0.9% IV 12/26/23 05:59 30 mls/hr .Q24H ROYCE Administration PFSH Anesthesia Medical History (Updated 11/07/23 @ 09:50 by Sharad Sommer DO) No pertinent past medical history Surgical History (Updated 12/24/23 @ 11:32 by Marge Osborn RN) History of laparoscopic appendectomy Social History Smoking and tobacco/nicotine status: never used tobacco/nicotine Substance/Drug Use: never Data Anesthesia Cardiac Studies: No Data to Display
--- NOTE | 2023-12-25 06:51 | ANES.PROC ---
Anesthesia Procedures Procedure/Date: 12/25/23 Nerve Block ^: Nerve Block 1: Main Anesthesia: general anesthesia Time Out Performed: Yes Consent: requested by attending/covering physician, from patient, from other, risks and benefits reviewed and patient agrees to proceed Nerve block location: interscalene (R) Anesthesia monitors applied: pulse oximetry, EKG, BP cuff and oxygen Nerve block position: semi sitting Anesthetic Used: ropivicaine 0.5% (20 ml) and with decadron (3 mg) Ultrasound used to: recognize landmarks, visualize and ID brachial plexus, in supraclavicular region and visualize and ID interscalene groove Nerve Stimulator Used?: No Interscalene/Femoral BLK: 2 stimuplex 22 g needle used for position and inplane approach, visualize local anesthetic spread and no vascular puncture identified Injection: neg aspiration of heme Patient Tolerated Procedure: well Complications: none
--- NOTE | 2023-12-25 06:56 | W.PM.OPSFHP ---
Same Day Surgery H&P Indication for Procedure/HPI DATE OF PROCEDURE: December 25, 2023 CHIEF COMPLAINT/INDICATIONFOR SURGICAL PROCEDURE: Right shoulder rotator cuff tear, subacromial impingement, AC joint arthritis, biceps tendinitis PREOP DIAGNOSIS: Right shoulder rotator cuff tear, subacromial impingement, AC joint arthrit PLANNED PROCEDURE: Operation Date: 12/25/23 07:00 Proposed Procedures p Shoulder Arthroscopy(Right) - Sharad Sommer DO s Rotator Cuff Repair - Arthroscopy(Right) - Sharad Sommer DO s Subacromial Decompression(Right) - Sharad Sommer DO s AC Joint Resection(Right) - Sharad Sommer DO Medications/Allergies* Home Medications Medication Instructions Recorded Confirmed Type ibuprofen 200 mg capsule 200 mg PO Q6H PRN Pain 11/07/23 12/24/23 History lidocaine 4 % topical patch 1 patch topical DAILY PRN Pain 11/07/23 12/24/23 History dextroamphetamine-amphetamine ER 10 mg PO DAILY 12/24/23 12/24/23 History 10 mg 24hr capsule,extend release fluticasone 500 mcg-salmeterol 50 1 inh inhalation PRN 12/24/23 12/24/23 History mcg/dose blistr powdr for inhalation (Wixela Inhub) levothyroxine 50 mcg tablet 50 mcg PO DAILY 12/24/23 12/24/23 History loratadine-pseudoephedrine ER 10 1 tab PO DAILY 12/24/23 12/24/23 History mg-240 mg tablet,extended [id number] (Claritin-D 24 Hour) Allergies/Adverse Reactions Allergy/AdvReac Type Severity Reaction Status Date / Time Sulfa (Sulfonamide Allergy ALGY-Rash Verified 11/07/23 08:33 Antibiotics) Current Medications: Generic Name Dose Route Start Last Admin Trade Name Freq PRN Reason Stop Dose Admin Sodium Chloride 1,000 mls @ 30 mls/hr 12/25/23 06:00 12/25/23 06:18 Sodium Chloride 0.9% IV 12/26/23 05:59 30 mls/hr .Q24H ROYCE Administration Pertinent History/Comorbid Conditions* Medical History (Updated 11/07/23 @ 09:50 by Sharad Sommer DO) No pertinent past medical history Surgical History (Updated 12/19/21 @ 15:32 by Sterling Mari DO) History of laparoscopic appendectomy Social History Smoking and tobacco/nicotine status: never used tobacco/nicotine Substance/Drug Use: never Pertinent Exam Findings alert, oriented x 3, operative site marked and procedure specific exam findings Please refer to detailed orthopedic examination on 11/04/2023 listed below: Shoulder exam: Right C-Spine ROM: Normal C-spine range of motion with no pain Spurlings: Negative ROM: Full active and passive range of motion, crepitus and catching on mid ranges of motion with pain associated TTP over the bicipital groove, the anterior aspect of the shoulder subacromial space, AC joint, lateral rotator cuff footprint O'Briens: Positive Jobes: Positive with 4 out of 5 strength [place]rieta Impingement: Positive Speeds Test: Positive Crossover/Neers test: Positive with tenderness over the AC joint Recommendations Surgery/Procedure today Other Plans: Plan to proceed to the OR today for right shoulder diagnostic and surgical arthroscopy with rotator cuff repair, subacromial decompression, AC joint resection, possible biceps tenodesis. We talked about the ins and outs of procedure the risk benefits complications alternatives of surgery and through shared decision making patient elects to proceed with surgical intervention. All questions have been answered at this time. Coding Level of Care Code Acute Code for Mariumg Fwneal
[2023-12-25] MEDS: ceFAZolin 2,000 MG in sodium chloride 0.9% (plus) 50 ML 100 MG IV (07:02)
[2023-12-25] MEDS: EPINEPHrine 1 mg/mL INJ 2 MG XX (07:52)
--- NOTE | 2023-12-25 08:49 | P.BOP_ITS ---
Date of Procedure: 12/25/2023 Surgeon: Sharad Sommer DO Material Handler 2Nd Shift(s): None Procedure(s) performed: Right shoulder diagnostic and surgical arthroscopy with rotator cuff repair (large-massive) Right shoulder diagnostic and surgical arthroscopy with AC joint resection (distal clavicle excision) Right shoulder diagnostic and surgical arthroscopy with subacromial decompression (bursectomy and acromioplasty) Right shoulder diagnostic and surgical arthroscopy with labral debridement Findings of the procedure(s): Patient was found to have a large to massive rotator cuff tendon tear that was retracted to the level of the glenoid. Releases were performed and there was appropriate tendon excursion and good tendon quality for an satisfactory repair of a large to massive rotator cuff tear. This required a 3 medial row anchor and a 2 lateral row anchor configuration with satisfactory fixation the bicep tendon was intact labral tearing noted underwent labral debridement as well as underwent AC resection and subacromial decompression underwent procedure as planned without issues or complications Estimated blood loss: 5 mL Specimen(s) removed: None Post-operative diagnosis: Right shoulder rotator cuff tear, circumferential labral tearing, subacromial impingement, AC joint arthritis
--- NOTE | 2023-12-25 08:51 | P.OP_ITS ---
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 2?3 Right?shoulder?rotator cuff tear Right?shoulder?AC joint arthritis Right?shoulder?subacromial bursitis/impingement Procedure done: Right?shoulder?diagnostic and surgical arthroscopy with arthroscopic rotator cuff repair (large?massive) Right?shoulder?diagnostic and surgical arthroscopy labral debridement Right?shoulder?diagnostic and surgical arthroscopy acromioclavicular joint resection Right?shoulder?diagnostic and surgical arthroscopy subacromial decompression (acromioplasty and bursectomy) Surgeon: Sharad Sommer DO Estimated blood loss: 5mL IV fluids: 1800 mL Implants: Arthrex 2.6 fiber tack rotator cuff x 3 Arthrex 4.75 swivel locks x 2 Complications: None Condition: stable Disposition: same day Brief History: Patient been seen and worked up in the outpatient setting for right?shoulder?pain.? Pt had an MRI which showed findings below.? Patient's failed conservative treatment and has weakness.? We talked about treatment options far as nonoperative and operative intervention..? We talked about risk benefits complication alternatives surgical nonsurgical treatment options.? Understanding risk of surgery he agrees to proceed with surgical intervention.? All questions have been answered at this time.? Patient elects proceed with surgery and consent obtained in the preoperative holding area for right shoulder diagnostic and surgical arthroscopy with rotator cuff repair, subacromial decompression, AC joint resection, possible biceps tenodesis MR/MR shoulder RT wo con* [id number] IMPRESSION: 1. 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 Slight impingement distal supraspinatus with calcific tendinopathy. 2. Small insertional tear distal supraspinatus with retraction measuring 1.3 cm. 3. Rotator cuff is otherwise intact. 4. Normal biceps tendon in the bicipital groove. 5. Intra-articular biceps tendon is intact. 6. Moderate degenerative arthritis glenohumeral articulation. 7. No evidence of Hill-Sachs lesion. Procedure: Patient seen evaluated in the preoperative holding area.? Consent reviewed and signed with patient.? Once again reviewed patient's MRI results as well as? planned surgical intervention.? Correct extremity marked.? Patient seen evaluated by anesthesia department received regional anesthesia.? Once ready for surgery was taken back to the operative suite.? Patient then subsequently underwent anesthesia per the anesthesia department was transported onto the OR table.? Patient was then placed into a lateral decubitus position with a beanbag and was appropriately secured to the bed.? All bony prominences well-padded.? Patient then had the right upper extremity was then prepped and draped in standard orthopedic fashion.? Patient received appropriate preoperative antibiotics.? Final timeout performed. The right upper extremity was then held in hanging from traction utilizing sterile technique.? Next started with standard diagnostic and surgical arthroscopy with posterior portal position introduced arthroscope into the glenohumeral joint.? Visualized the glenohumeral joint I then introduced a spinal needle within the rotator cuff interval to confirm appropriate anterior portal placement.? Once this was confirmed I then made my small incision and then introduced my arthroscopic shaver into the glenohumeral joint.? Thorough inspection was then performed of the bicep tendon there was no instability of the superior labral bicep complex and no evidence of bicep tendinitis. The bicep tendon was left alone. Next I evaluated the subscapularis tendon which was intact and no evidence of tear. ?Next there was significant labral tearing circumferential.? ? I then subsequently utilized a a arthroscopic shaver and thermal wand to perform a labral debridement.? This point time I then visualized the glenohumeral joint.? The glenohumeral joint was found to have grade 2?3 chondromalacia throughout.? Axillary pouch was free of loose bodies from viewing the posterior portal.? Next a visualized the rotator cuff superiorly and there was found to have a large tear of the supraspinatus tendon retracted to the glenohumeral joint. I utilized a spinal needle to martinez this location.?? This completed my work within the glenohumeral joint all fluid was suctioned free of the joint.? ?Next I reintroduced the arthroscope posteriorly.? And went to the subacromial space.? I established my lateral working portal at the site of which my spinal needle was marking of the rotator cuff tear.? Thermal wand was then introduced laterally and then I subsequently performed extensive bursectomy of the subacromial space.? Patient had a large anterior bone spur.? At this point time I proceeded with my AC joint resection thermal wand was used and track to the anterior edge of the acromion and then tracked all the way to the AC joint.? Once identified the AC joint this was very arthritic in nature.? Thermal wand was placed anteriorly to establish appropriate plane for AC joint resection.? Once appropriate margins and anterior inferior and anterior capsule was released I then introduced arthroscopic shaver and a bur and performed AC joint resection of both the acromion to cope plane at the AC joint and a distal clavicle resection was then performed totaling 1 cm in size and was confirmed.? This completed my AC joint resection and I then introduced the arthroscopic shaver laterally while continuing to view posteriorly.? I then performed an acromioplasty to complete my subacromial decompression prior to fixing the rotator cuff tear.? Next the arthroscopic shaver was then used previous spinal needle spot that is marked tear in the rotator cuff this was consistent with a large to massive full-thickness tear.? At this point in time decision was made for a 3x medial suture anchor. At this point in time I subsequently utilized an arthroscopic bur to decorticate the rotator cuff footprint as well as slightly medialized off the articular margin. I utilized grasper to confirm satisfactory mobility of the rotator cuff this was able to be pulled over right to the rotator cuff footprint. I did have to utilize arthroscopic shaver to debride any adhesions around the rotator cuff to obtain full tendon excursion but this did appear to be thick and able to be repaired. At this point in time I plan for 3 medial row anchors and 2 lateral row anchors. I then subsequently once the rotator cuff footprint was appropriately did debrided and good bleeding bone was noted I then subsequently placed an arthroscopic lateral passport cannula. I then utilized a spinal needle to make an accessory portal for placement of my medial row anchors. We then subsequently through this portal site subsequently drilled and placed 3 medial row soft tissue fiber tack 2.6 Arthrex anchors. These were then subsequently passed an anterior to posterior fashion with a total of 6 suture tapes passed encompassing the entire aspect of the supraspinatus rotator cuff. At this point in time I selected sutures 1, 3, 5 for my lateral anterior anchor. These were then loaded into a 4.75 swivel lock. I then subsequently punched and then under appropriate tension secured the 4.[address] while maintaining appropriate tension I was satisfied with this and then subsequently removed the excess suture with arthroscopic suture cutter. Next I then loaded suture pass #2, 4, 6 these were then loaded into a 4.75 swivel lock for the posterior and lateral 4.75 swivel lock anchor. These were loaded appropriately I subsequently placed a punch and secured the 4.75 swivel lock suture anchor under appropriate tension and secured this which had excellent fixation and repair. This completed the rotator cuff repair all excess sutures were then cut with arthroscopic suture cutter I then at this point in time inspected the rotator cuff repair. This had excellent pulling over of the supraspinatus and had excellent compression of the rotator cuff under the rotator cuff footprint. Repair was found to be satisfactory?shoulder?was taken through range of motion and the repair moved as a unit with no evidence of loss of fixation. ?I then switched the arthroscope to the lateral portal to confirm this tension- free repair.? I took the?shoulder?through range of motion and the rotator cuff repair was stable and moved as a unit. ?Next I then introduced the arthroscopic shaver posteriorly to complete my subacromial decompression appropriate complaining all the way up to the lateral edge of the acromion.? This completed the surgery.? All fluid was suctioned from the?shoulder.? All instruments were removed.? The lateral incision was then closed with nylon stitches.? As well as the portal sites closed with portal nylon stitches.? Xeroform 4 x 4's ABD and tape was then applied to the right?shoulder?and was placed into a?shoulder?abduction pillow sling for rotator cuff repair.? Patient was then awakened from anesthesia and then taken back to PACU in stable condition.? Patient tolerated procedure without any issues. Disposition: Patient taken back in stable condition recovering well.? Dressings on in place clean dry and intact.? Will be nonweightbearing to the right upper extremity.? Follow rotator cuff repair protocol.? Patient to follow-up with me in the office in 2 weeks.? Patient will receive appropriate discharge instruction as well as pain medication postoperatively.? All questions answered.? We will contact the office for any questions or concerns.
[2023-12-25] MEDS: fentaNYL 50 mcg/mL INJ 2mL IVP ×2 (09:15→09:52)
[2023-12-25] MEDS: HYDROcodone-acetaminophen 7.5-325 mg Tablet 1 TAB PO (10:32)
--- NOTE | 2023-12-25 11:10 | ANE.PACU2 ---
Inpatient post-anesthesia follow up: Airway intact: Yes Vital signs: Temperature 97.1 F Pulse Rate 68 Respiratory Rate 18 Blood Pressure 159/88 Pulse Oximetry 100 Oxygen Delivery Me thod Room Air Oxygen Flow Rate 8 Fraction of Inspir ed Oxygen Hydration adequate: Yes Nausea and vomiting: No Pain level: 4 Mental status: Baseline
== END 2023-12-25 11:10 | disposition home or self-care (01) ==
PROVIDERS: Family Provider Internal Medicine; PCP Family Medicine; Visit Provider Student in an Organized Health Care Education/Training Program
PROC: (CPT 29805; principal; 2023-12-25 07:00)
PROC: (CPT 29827; 2023-12-25 07:00)
PROC: (CPT 29826; 2023-12-25 07:00)
PROC: 0RSG0ZZ Reposition Right Acromioclavicular Joint, Open Approach (ICD-10-PCS; CPT 29827; 2023-12-25 07:00)
PROC: (CPT 29827; 2023-12-25 07:00)
DX: S41.011A Laceration without foreign body of right shoulder, initial encounter (principal); X58.XXXA Exposure to other specified factors, initial encounter; M94.20 Chondromalacia, unspecified site; M75.101 Unspecified rotator cuff tear or rupture of right shoulder, not specified as traumatic; M19.011 Primary osteoarthritis, right shoulder; M25.811 Other specified joint disorders, right shoulder
CPT/HCPCS: 29827; 29824; 29826; C1713; J0131; J0171; J0690; J1100; J1885; J2405; J2704; J2795; J3010; J7030

== ENCOUNTER 2024-02-10 10:31 | Outpatient (RCR) | payer OTHER, SELFPAY | END 2024-02-18 23:59 | disposition home or self-care (01) | LOC: SPT 10:31 | PROVIDERS: Visit Provider Student in an Organized Health Care Education/Training Program | DX: Z98.890 Other specified postprocedural states (principal) | CPT/HCPCS: 97110; 97161; 97530 ==

== ENCOUNTER 2024-02-19 06:00 | Outpatient (RCR) | payer OTHER, SELFPAY | END 2024-03-20 23:59 | disposition home or self-care (01) | LOC: SPT 06:00 | PROVIDERS: Visit Provider Student in an Organized Health Care Education/Training Program | DX: Z98.890 Other specified postprocedural states (principal) | CPT/HCPCS: 97110 ==

== ENCOUNTER 2024-03-21 06:30 | Outpatient (RCR) | payer OTHER, SELFPAY | END 2024-04-15 11:05 | disposition home or self-care (01) | LOC: SPT 06:30 | PROVIDERS: Visit Provider Student in an Organized Health Care Education/Training Program | DX: Z98.890 Other specified postprocedural states (principal) | CPT/HCPCS: 97110 ==

== ENCOUNTER 2024-04-06 10:42 | Outpatient (CLI) | payer OTHER, SELFPAY ==
--- NOTE | 2024-04-06 | MM_ITS ---
WS: [id number] VIEWS: MLO and CC views both breasts. 3D digital tomosynthesis is also included in this exam. Breast implant displacement views were also included. Comparison made with prior exam of 09/11/2007, 11/24/2008, 03/16/2010, 04/17/2011, 05/22/2012, 06/04/2013, 06/25/2014, 07/01/2015, 07/09/2016, 07/30/2017, 09/03/2018, 07/27/2020, 02/02/2022,. Findings: The breasts are extremely dense, which lowers the sensitivity of mammography. No sign of suspicious mass, tumor calcification or architectural distortion. Intact bilateral breast implants are noted. MM/MM scr BI tomosynthesis [id number] Impression: BI-RADS: 2 - Benign FOLLOW-UP: 1 Year Follow-up This mammogram was also analyzed by the Computer Aided Detection System R2 Imag e Radioisotope Technician.
== END 2024-04-06 10:43 | disposition home or self-care (01) ==
LOC: RAD 10:45
PROVIDERS: Visit Provider Internal Medicine
DX: Z12.31 Encounter for screening mammogram for malignant neoplasm of breast (principal); R92.343 Mammographic extreme density, bilateral breasts; Z98.82 Breast implant status
CPT/HCPCS: 77063; 77067